=== PATIENT | female | born 1945 | race Caucasian/White ===

== ENCOUNTER 2022-08-06 08:48 | Day surgery (SDC) | payer MEDICARE, SELFPAY ==
--- NOTE | 2022-08-06 08:59 | FL_ITS ---
The [address] [address] Patient Name: TONY BELL MRN: [id number] date: 1945 Sex: F Assigned Patient Location: [place] Current Patient Location: [place] Accession/Order Number: [id number] Exam Date: 08/06/2022 09:40 Report Date: 08/06/2022 11:58 At the request of: MARCELA COTA Procedure: FL arthrogram shoulder RT EXAMINATION: FL arthrogram shoulder RT HISTORY: Right shoulder pain COMPARISON: No relevant comparison available. TECHNIQUE: An arthrogram was performed under fluoroscopic guidance using non-ionic contrast material in the usual sterile manner after obtaining informed consent. Standard level fluoroscopic mode of operation utilized. FINDINGS: JOINT: Right shoulder NEEDLE: 25 gauge, 3.5 spinal needle. MEDICATION: 2cc buffered 1% lidocaine for subcutaneous anesthesia 2cc Omnipaque-240 iodinated contrast to visualize the joint space 40 mg Depo-Medrol and one mL, 3 mL's of 0.5% bupivacaine, 3 cc of sterile saline injected into the joint space. TECHNIQUE: Anterior approach. A single stick was successful in gaining access to the joint space. CLINICAL: 4 out of 10 pain pre and post injection COMPLICATIONS: None. BONES: Normal. No erosion, osteophyte, fracture, or bony lesion. CARTILAGE: Normal. No visible erosion or interruption. CAPSULE: Normal. No visible capsular laxity or labrum tear. HARI-ARTICULAR: Normal. No visible hari-articular soft tissue abnormality. LOOSE BODIES: None. OTHER: Negative. IMPRESSION: Technically successful right shoulder arthrogram with no change in the patients pain Electronically authenticated by: DIPTI MCGILL Date: 08/06/2022 11:58
[2022-08-06] MEDS: BUPIVACAINE HCL 0.5% PF 50 MG/10 ML VIAL 2 ML INJ (10:00)
[2022-08-06] MEDS: TRIAMCINOLONE ACETONIDE 40 MG/ML VIAL INJ (10:00)
[2022-08-06] MEDS: LIDOCAINE HCL 10 ML, SODIUM BICARBONATE 1 MEQ INJ (10:00)
--- NOTE | 2022-08-06 11:51 | PC.NURSE ---
Pt states that her abdominal pain was caused by trying Naproxen recently and most NSAIDS cause her GI distress. Pain is resolving each day since stopping the medicine.
[2022-08-06 11:53] VITALS: BMI 15.2
--- NOTE | 2022-08-06 12:02 | PC.NURSE ---
1018 As I was walking patient out of department and down lab hallway, patient tripped and fell on left elbow and right knee. Pt remained conscious but was able to sit up 2 minutes after fall. Pt assisted to wheelchair and left elbow examined and noted to have skin tear approx size of an egg. Pt does have open break in skin with small amount of bleeding. Applied pressure for 2 minutes and then cleansed with NS. Applied Vaseline gauze dressing , 4x4 gauze, and coban to wrap. Right knee examined for open breaks in skin and no problems noted. Offered for pt to go to ER and be examined if she felt it was necessary but she declined. Pt feels as though she can drive home herself. 1025 Pt taken by w/c to vehicle. Gait steady and pt drove herself out of parking lot without incident.
== END 2022-08-06 10:25 | disposition home or self-care (01) ==
LOC: FL 08:50
PROVIDERS: Radiology Diagnostic Radiology; PCP Family Medicine; Visit Provider Family Medicine
DX: M25.511 Pain in right shoulder (principal)
CPT/HCPCS: 73040; 77002; Q9967

== ENCOUNTER 2023-07-31 11:04 | Outpatient (OUT) | payer MEDICARE, SELFPAY ==
[2023-07-31 11:39] LABS: Basophils Absolute Auto 0.1 10^3/uL (0.0-0.1); Basophils Percent Auto 1.9 % (0.2-2.0); Eosinophils Absolute Auto 0.1 10^3/uL (0.0-0.7); Eosinophils Percent Auto 1.5 % (0.9-7.0); Hematocrit 35.6 % (36.0-48.0); Hemoglobin 11.6 g/dL (12.0-16.0); Immature Granulocytes Abs Auto 0.01 10^3/uL (0.00-0.03); Immature Granulocytes Pct Auto 0.2 % (0.0-0.5); Lymphocytes Percent Auto 19.7 % (20.5-60.0); Mean Corpuscular HGB Conc 32.6 g/dL (29.9-35.2); Mean Corpuscular Hemoglobin 35.3 pg (26.7-34.0); Mean Corpuscular Volume 108.2 fL (81.0-99.0); Mean Platelet Volume 10.5 fL (9.5-13.5); Monocytes Absolute Auto 0.4 10^3/uL (0.3-0.8); Monocytes Percent Auto 7.2 % (1.7-12.0); Neutrophils Absolute Auto 3.7 10^3/uL (1.4-6.5); Neutrophils Percent Auto 69.5 % (43.0-75.0); Platelet Count 190 10^3/uL (150-450); Red Blood Count 3.29 10^6/uL (4.20-5.40); Red Cell Distribution Width 13.5 % (11.0-15.0); White Blood Count 5.3 10^3/uL (4.0-11.0)
[2023-07-31 12:47] LABS: Estimated Average Glucose 91 mg/dL; Glycohemoglobin A1C 4.8 % (4.5-6.2)
[2023-07-31 12:53] LABS: Alanine Aminotransferase 21 U/L (14-59); Albumin Globulin Ratio 0.8; Albumin Level 3.1 g/dL (3.4-5.0); Alkaline Phosphatase 66 U/L (46-116); Aspartate Amino Transferase 21 U/L (15-37); BUN Creatinine Ratio 13.8; Bilirubin Total 0.3 mg/dL (0.2-1.0); Calcium 8.7 mg/dL (8.5-10.1); Carbon Dioxide 18.4 mmol/L (21.0-32.0); Chloride 110 mmol/L (98-107); Cholesterol 214 mg/dL (<=200); Estimated GFR (African America 18 (>=60); Estimated GFR (Non-African Ame 15 (>=60); Free T3 14.15 pg/mL (2.18-3.98); Globulin 3.7 g/dL; Glucose 70 mg/dL (74-106); HDL Cholesterol 164 mg/dL (40-60); Potassium 3.4 mmol/L (3.5-5.1); Sodium 142 mmol/L (136-145); Thyroid Stimulating Hormone 0.245 uIU/mL (0.358-3.740); Total Protein 6.8 g/dL (6.4-8.2); Triglycerides 48 mg/dL (<=150); VLDL CHOLESTEROL 9.6 mg/dL
[2023-07-31 13:04] LABS: Chol HDL Ratio 1.3
== END 2023-07-31 11:05 | disposition home or self-care (01) ==
LOC: LAB 11:10
PROVIDERS: PCP Family Medicine; Visit Provider Family Medicine
DX: E78.5 Hyperlipidemia, unspecified (principal); Z79.899 Other long term (current) drug therapy; E11.9 Type 2 diabetes mellitus without complications; Z12.11 Encounter for screening for malignant neoplasm of colon; I10 Essential (primary) hypertension; E03.9 Hypothyroidism, unspecified
CPT/HCPCS: 36415; 80053; 80061; 83036; 84436; 84443; 84481; 85025

== ENCOUNTER 2023-08-03 11:29 | Outpatient (OUT) | payer MEDICARE, SELFPAY ==
[2023-08-03 12:37] LABS: Alanine Aminotransferase 21 U/L (14-59); Albumin Globulin Ratio 0.9; Albumin Level 3.2 g/dL (3.4-5.0); Alkaline Phosphatase 62 U/L (46-116); Anion Gap 16.6; Aspartate Amino Transferase 24 U/L (15-37); BUN Creatinine Ratio 15.2; Bilirubin Total 0.3 mg/dL (0.2-1.0); Calcium 8.6 mg/dL (8.5-10.1); Carbon Dioxide 18.8 mmol/L (21.0-32.0); Chloride 109 mmol/L (98-107); Estimated GFR (African America 19 (>=60); Estimated GFR (Non-African Ame 16 (>=60); Free T3 10.42 pg/mL (2.18-3.98); Globulin 3.5 g/dL; Glucose 100 mg/dL (74-106); Potassium 3.4 mmol/L (3.5-5.1); Sodium 141 mmol/L (136-145); Thyroid Stimulating Hormone 0.455 uIU/mL (0.358-3.740); Total Protein 6.7 g/dL (6.4-8.2)
[2023-08-04 14:11] LABS: Thyroglobulin Antibody 16.3 IU/mL (0.0-0.9); Thyroid Peroxidase (TPO) Ab >600 IU/mL (0-34)
== END 2023-08-03 11:30 | disposition home or self-care (01) ==
LOC: LAB 11:30
PROVIDERS: PCP Family Medicine; Visit Provider Family Medicine
DX: E03.9 Hypothyroidism, unspecified (principal); E87.6 Hypokalemia
CPT/HCPCS: 36415; 80053; 84436; 84443; 84481; 86376; 86800

== ENCOUNTER 2023-08-20 11:57 | Outpatient (OUT) | payer MEDICARE, SELFPAY ==
[2023-08-20 13:29] LABS: Free T4 1.44 ng/dL (0.76-1.46)
[2023-08-20 13:34] LABS: Thyroid Stimulating Hormone 1.038 uIU/mL (0.358-3.740)
== END 2023-08-20 11:58 | disposition home or self-care (01) ==
PROVIDERS: PCP Family Medicine; Visit Provider Family Medicine
DX: E05.00 Thyrotoxicosis with diffuse goiter without thyrotoxic crisis or storm (principal)
CPT/HCPCS: 36415; 84439; 84443

== ENCOUNTER 2023-12-04 11:20 | Outpatient (OUT) | payer MEDICARE, SELFPAY ==
--- OUTSIDE RECORDS SUMMARY | 2023-12-03 14:02 | XMS_ITS | CCD ---
Author Organization [facility] Care Team Providers Care Laborer Powerhouse Name Role Phone GHAZOUL, PRUDENCIO Unavailable Unavailable SELF, SELF Unavailable Unavailable GHAZOUL, PRUDENCIO Unavailable Unavailable SELF, SELF Unavailable Unavailable EfeemmaJordi turcios Unavailable IKEY ., DR MEDRANO Admitting Unavailable HOY ., DR MEDRANO Attending Unavailable HOY ., DR MEDRANO Consulting Unavailable HOY ., DR MEDRANO Primary Care Unavailable ZIEBER, DR FLY Correa Consulting Unavailable HOY ., DR MEDRANO Primary Care Unavailable HOY ., DR MEDRANO Attending Unavailable HOY ., DR MEDRANO Admitting Unavailable HOY ., DR MEDRANO Consulting Unavailable RANCHO CUCAMONGA, DR DIPTI Underwood Consulting Unavailable HOY ., DR MEDRANO Primary Care Unavailable HOY ., DR MEDRANO Attending Unavailable HOY ., DR MEDRANO Admitting Unavailable HOY ., DR MEDRANO Consulting Unavailable ZIEBER, DR FLY Correa Consulting Unavailable HOY ., DR MEDRANO Primary Care Unavailable HOY ., DR MEDRANO Attending Unavailable HOY ., DR MEDRANO Admgeovany Unavailable HOY ., DR MEDRANO Consulting Unavailable ZIEBER, DR FLY Correa Consulting Unavailable HOY ., DR MEDRANO Admgeovany Unavailable HOY ., DR MEDRANO Primary Care Unavailable HOY ., DR MEDRANO Attending Unavailable HOY ., DR MEDRANO Consulting Unavailable HOY ., DR MEDRANO Primary Care Unavailable HOY ., DR MEDRANO Attending Unavailable HOY ., DR MEDRANO Admitting Unavailable HOY ., DR MEDRANO Admitting Unavailable HOY ., DR MEDRANO Attending Unavailable HOY ., DR MEDRANO Consulting Unavailable HOY ., DR MEDRANO Primary Care Unavailable MICHAEL VERAS Unavailable RONIT MORALES Consulting Unavailable HOY ., DR MERDANO Admitting Unavailable HOY ., DR MEDRANO Attending Unavailable HOY ., DR MEDRANO Consulting Unavailable HOY ., DR MEDRANO Primary Care Unavailable DR FLY EARL Consulting Unavailable MD Marcela Rocha Primary Care Provider [phone] MD Moreno Canales Attending Provider Moreno Canales Unavailable MD Marcela Rocha Primary Care Provider [phone] MD Moreno Canales Attending Provider [phone] Marcela Rocha Primary Care Unavailable Moreno Canales Attending Unavailable Moreno Canales Admitting Unavailable Allergies Allergy Classification Reported Allergen(s) Allergy Type Date of Onset Reaction(s) Facility (3 sources) Penicillin V Drug Allergy Contently Other (1 source) Baclofen Drug Allergy 3 [facility] (1 source) Cefadroxil Drug Allergy 3 [facility] (1 source) Ibuprofen Drug Allergy 4 [facility] (1 source) Iothalamate Drug Allergy 3 [facility] (3 sources) Penicillins Drug allergy (disorder) 5 Vomiting [facility] (1 source) Sulfamethoxazole / Trimethoprim Drug Allergy 5 [facility] (3 sources) Meperidine; Translations: [meperidine] Drug Allergy 1 [facility] (3 sources) Sulfamethoxazole; Translations: [sulfamethoxazole] Drug Allergy 1 [facility] (3 sources) Trimethoprim; Translations: [trimethoprim] Drug Allergy 1 [facility] (1 source) Penicillin Drug Allergy [address] [facility] Rep[facility] (1 source) Penicillins Drug allergy (disorder) [address] [facility] Rep[facility] Medications Current Medications Medication Drug Class(es) Dates Sig (Normalized) Sig (Original) acetaminophen 325 mg / oxyCODONE hydrochloride 5 mg oral tablet (5 sources) Opioid Agonist Start: 11-16-2020 take 1 tablet by mouth twice daily Oxycodone-Acetami nophen Active 1 TAB PO Twice daily November 15, 2020 11:00pm oxyCODONE-Acetam inophen 5-325 MG Oral for 30 Active amLODIPine 5 mg oral tablet (5 sources) Dihydropyridine Calcium Channel Robby Start: 11-18-2020 take 5 mg by mouth twice daily Amlodipine Active 5 MG PO Twice daily 60 November 17, 2020 11:00pm carvedilol 25 mg oral tablet (5 sources) alpha-Adrenergic Robby, beta-Adrenergic Robby Start: 11-18-2020 take 25 mg by mouth twice daily at mealtime Carvedilol Active 25 MG PO Twice daily with meals 60 November 17, 2020 11:00pm Carvedilol 12.5 MG Oral for 30 Active dexamethasone 2 mg oral tablet (2 sources) Corticosteroid Start: 11-18-2020 Dexamethasone Active 2 MG PO As Directed 10 November 17, 2020 11:00pm Take 2 mg 3 times a day for 2 days then 2 mg 2 times a day for 2 days then stop diazePAM 2 mg oral tablet (2 sources) Benzodiazepine Start: 11-16-2020 take 2 mg by mouth at bedtime Diazepam Active 2 MG PO Bedtime November 15, 2020 11:00pm estrogens, conjugated (assisted) 0.9 mg oral tablet (5 sources) Estrogen Start: 11-16-2020 take 1 tablet by mouth once daily Conjugated Estrogens (Premarin) 0.9 mg Tablet Active 0.9 MG PO Daily November 15, 2020 11:00pm FLUoxetine 20 mg oral capsule (2 sources) Serotonin Reuptake Inhibitor Start: 11-17-2020 take 1 capsule by mouth once daily Fluoxetine (Prozac) 20 mg Capsule Active 20 MG PO Daily November 16, 2020 11:00pm levothyroxine sodium 0.05 mg oral tablet (7 sources) l-Thyroxine Start: 11-16-2020 take 50 ug by mouth once daily Levothyroxine Active 50 MCG PO Daily November 15, 2020 11:00pm Start: 11-16-2020 End: 11-16-2020 take 1 ug by mouth once daily Levothyroxine (Synthroid ) 25 mcg Tablet Discontinued MCG PO Daily November 15, 2020 11:00pm November 16, 2020 8:30am take 1 tablet by frank th once daily in the morning Levothyroxine Sodium 50 MCG 1 tablet in the morning on an empty stomach Orally Once a day Active meclizine hydrochloride 25 mg oral tablet (3 sources) Antiemetic Meclizine HCl 25 MG Oral for 5 Active Multi Complete (2 sources) Multi Complete Active potassium chloride 20 meq extended release oral tablet (5 sources) Start: 11-16-2020 take 20 mEq by mouth twice daily Potassium Chloride Active 20 MEQ PO Twice daily November 15, 2020 11:00pm Klor-Con M20 20 MEQ Oral for 90 Active zolpidem tartrate 10 mg oral tablet (5 sources) gamma-Aminobutyric Acid-ergic Agonist Start: 11-16-2020 take 10 mg by mouth at bedtime Zolpidem Active 10 MG PO Bedtime November 15, 2020 11:00pm Completed/Discontinued Medications Medication Drug Class(es) Dates Sig (Normalized) Sig (Original) triamcinolone acetonide 40 mg/ml injectable suspension (1 source) Corticosteroid Start: 11-18-2022 Kenalog-40 Nov, 40 mg Problems Active Problems Problem Classification Problem Date Documented Date Episodic/Chronic Abdominal hernia (1 source) Diaphragmatic hernia without obstruction or gangrene; Translations: [DIAPH HERNIA W/O OBST/GANGRENE] Onset: 07-04-2022 Episodic Abdominal pain (1 source) Right upper quadrant pain; Translations: [RIGHT UPPER QUADRANT PAIN] Onset: 07-04-2022 Episodic Acute cerebrovascular disease (8 sources) Nontraumatic intraparenchymal cerebral hemorrhage; Translations: [Nontraumatic intracerebral hemorrhage in hemisphere, subcortical] Onset: 12-26-2020 Resolved: 12-26-2020 Chronic Bacterial infection; unspecified site (1 source) Unspecified Escherichia coli [E. coli] as the cause of diseases classified elsewhere; Translations: [UNS E COLI CAUSE DX CLASS ELSEWHERE] Onset: 06-04-2022 Episodic Blindness and vision defects (2 sources) Eye / vision finding; Translations: [Unspecified visual disturbance] 11-17-2020 Episodic Calculus of urinary tract (1 source) Calculus of kidney; Translations: [CALCULUS OF KIDNEY] Onset: 07-04-2022 Episodic Deficiency and other anemia (1 source) Iron deficiency anemia, unspecified; Translations: [IRON DEFICIENCY ANEMIA UNSPECIFIED] Onset: 06-04-2022 Episodic Essential hypertension (2 sources) Hypertensive disorder; Translations: [Essential (primary) hypertension] 11-16-2020 Chronic Fluid and electrolyte disorders (2 sources) Dehydration; Translations: [Hypokalemia] Onset: 06-04-2022 Episodic Hypertension with complications and secondary hypertension (4 sources) Hypertensive urgency; Translations: [Hypertensive chronic kidney disease with stage 1 through stage 4 chronic kidney disease, or unspecified chronic kidney disease] Onset: 06-04-2022 11-16-2020 Chronic Menopausal disorders (1 source) Hormone replacement therapy; Translations: [HORMONE REPLACEMENT THERAPY] Onset: 06-04-2022 Episodic Mood disorders (1 source) Mood disorders; Translations: [DEPRESSION UNSPECIFIED] Onset: 06-04-2022 Nausea and vomiting (3 sources) Vomiting, unspecified; Translations: [VOMITING UNSPECIFIED] Onset: 05-14-2022 Episodic Noninfectious gastroenteritis (1 source) Noninfective gastroenteritis and colitis, unspecified; Translations: [NONINFECTIVE GE AND COLITIS UNS] Onset: 06-04-2022 Episodic Osteoarthritis (4 sources) Primary osteoarthritis, right shoulder; Translations: [PRIMARY OSTEOARTHRITIS RT SHOULDER] Onset: 02-27-2022 Chronic Other aftercare (1 source) Other senior living (current) drug therapy; Translations: [OTH GROUP HOME CURRENT DRUG THERAPY] Onset: 06-04-2022 Episodic Other lower respiratory disease (1 source) Shortness of breath; Translations: [SHORTNESS OF BREATH] Onset: 06-04-2022 Episodic Other nervous system disorders (4 sources) Anosmia; Translations: [ANOSMIA] Onset: 07-03-2022 Episodic Other non-traumatic joint disorders (6 sources) Pain in right shoulder; Translations: [PAIN IN RIGHT SHOULDER] Onset: 06-27-2022 Episodic Other nutritional; endocrine; and metabolic disorders (8 sources) Cerebral amyloid angiopathy; Translations: [Organ-limited amyloidosis] 11-16-2020 Chronic Residual codes; unclassified (3 sources) Procedure related finding; Translations: [Encounter for cosmetic surgery] Episodic Residual codes; unclassified (1 source) Altered mental status, unspecified; Translations: [ALTERED MENTAL STATUS UNSPECIFIED] Onset: 06-04-2022 Episodic Residual codes; unclassified (1 source) Acquired absence of both cervix and uterus; Translations: [ACQUIRED ABSENCE BOTH CERVIX AND UTERUS] Onset: 06-04-2022 Episodic Spondylosis; intervertebral disc disorders; other back problems (1 source) Dorsalgia, unspecified; Translations: [DORSALGIA UNSPECIFIED] Onset: 06-04-2022 Episodic Sprains and strains (1 source) Strain of other muscles, fascia and tendons at shoulder and upper arm level, right arm, initial encounter Episodic Thyroid disorders (1 source) Hypothyroidism, unspecified; Translations: [HYPOTHYROIDISM UNSPECIFIED] Onset: 06-04-2022 Chronic Unclassified (1 source) Botox Injection / 657() Onset: 12-09-2016 Unclassified (1 source) CHRN KIDNEY DISEASE STG 3 UNSP; Translations: [CHRN KIDNEY DISEASE STG 3 UNSP] Onset: 06-04-2022 Unclassified (1 source) CONTACT W/AND (SUSP) EXPOS COVID-19; Translations: [CONTACT W/AND (SUSP) EXPOS COVID-19] Onset: 06-04-2022 Unclassified (1 source) PERSONAL HISTORY OF COVID-19; Translations: [PERSONAL HISTORY OF COVID-19] Onset: 06-04-2022 Unclassified (1 source) Pain in right shoulder; Translations: [Pain in right shoulder] Onset: 11-05-2022 Urinary tract infections (1 source) Urinary tract infection, site not specified; Translations: [UTI SITE NOT SPECIFIED] Onset: 06-04-2022 Episodic Past or Other Problems Problem Classification Problem Date Documented Da te Episodic/Chronic Other connective tissue disease (4 sources) Impingement syndrome of right shoulder; Translations: [IMPINGEMENT SYNDROME RIGHT SHOULDER] Onset: 02-20-2022 Episodic Unclassified (1 source) Botox Injection; Translations: [Botox Injection] Onset: 12-09-2016 Results Test Name Value Interpretation Reference Range Facil ity US KIDNEYS BLADDERon 023 US KIDNEYS BLADDER EXAM: US KIDNEYS BLADDER HISTORY: Blood chemistry abnormal COMPARISON: CT abdomen and pelvis 07/03/2022.. TECHNIQUE: Real-time ultrasound imaging of the kidneys and bladder. Findings: The right and left kidneys measure 8.7 and 8.1 cm. There is good corticomedullary differentiation bilaterally. There are multiple 0.1 to 0.2 cm nonobstructing stones bilaterally. No renal collecting system dilatation. There are also bilateral renal cysts. The largest is within the upper pole the right kidney measuring 1.0 x 0.7 x 0.6 cm. No perinephric fluid collection. Unremarkable bladder with visualization of the bilateral ureteral jets. Prevoid volume of 836 mL with a postvoid residual of 21 mL. IMPRESSION: 1. Nonobstructing punctate renal stones. No collecting system dilatation. 2. Bilateral renal cysts. Electronically authenticated by: AMILCAR JACKSON Date: 2022-07-09 14:07 Normal [facility] CREATININEon 07-03-2022 Creatinine [Mass/Vol] 2.97 mg/dL Critically high 0.55-1.02 [facility] Comment on above: Performed By: #### C MP, LIPA #### [facility] [address] [address] [address] Andrey Dorman EGFR-AF CENTRAL AFRICAN 19 mL/min/1.73m2 Critically low >=60 [facility] Comment on above: Performed By: #### C MP, LIPA #### [facility] [address] [address] [address] Andrey Dorman EGFR-NON AF CENTRAL AFRICAN 15 mL/min/1.73m2 Critically low >=60 [facility] Comment on above: Performed By: #### C MP, LIPA #### [facility] [address] [address] [address] ABD/PELVIS WO CONon 07-03 CT ABD/PELVIS WO CON CT scan of the abdomen and pelvis without contrast HISTORY: Diaphragmatic hernia , nausea, vomiting, right upper quadrant pain FINDINGS: LUNG BASES: No visible pulmonary or pleural disease. LIVER: No enlargement, atrophy, abnormal density, or significant focal lesion. BILIARY: No dilatation or calcification. PANCREAS: No lesion, fluid collection, ductal dilatation, or atrophy. SPLEEN: No enlargement or focal lesion. ADRENALS: No mass or enlargement. 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 Punctate nephrolithiasis, nonobstructive. No hydronephrosis BOWEL/MESENTERY: No visible mass, obstruction, or bowel wall thickening. Minimal colonic diverticulosis AORTA/VASCULAR: No aneurysm or dissection. RETROPERITONEUM: No mass or adenopathy. LYMPH NODES: No adenopathy. URINARY BLADDER: No visible focal wall thickening, lesion, or calculus. PELVIC ORGANS: Hysterectomy ABDOMINAL WALL: No mass or hernia. BONES: No bony lesion or fracture. OTHER: Negative. IMPRESSION: No acute intraperitoneal abnormality No diaphragmatic hernia Electronically authenticated by: DIPTI MCGILL Date: 2022-07-03 14:20 Normal [facility] US SINGLE QUAD RT UPPERon US SINGLE QUAD RT UPPER EXAMINATION: US SINGLE QUAD RT UPPER HISTORY: Right upper quadrant pain , intermittent for 3 months COMPARISON: No relevant comparison available. TECHNIQUE: Transabdominal evaluation of the right upper quadrant. FINDINGS: LIVER: Normal size and echotexture. Color Doppler demonstrates patent hepatic veins. PORTAL VEIN: Duplex Doppler demonstrates normal hepatopetal flow pattern with flow velocity averaging 55 cm/s. GALLBLADDER: No visible gallstones, wall thickening, or pericholecystic free fluid. Negative sonographic Park's sign. BILIARY: No abnormal dilation or stones. Common bile duct diameter is within normal limits. PANCREASE: No visible mass, abnormal atrophy, or duct dilation. KIDNEY: Several tiny nonobstructing stones within the kidney. Size of kidney: 7.9 x 4.4 x 4.3 cm IMPRESSION: 1. Nonobstructing right nephrolithiasis. 2. Otherwise unremarkable right upper quadrant ultrasound. Electronically authenticated by: FLY EARL Date: 2022-06-02 11:40 Normal [facility] CULTURE URINEon 05-16-2022 CULTURE URINE Isolate 1 Escherichia coli >100,000 cfu/mL of ORGANISM 1 Escherichia coli ANTIBIOTIC M.I.C RX STATUS Ampicillin 4 S F Ampicillin/Sulbactam <=2 S F Piperacillin/Tazobactam <=4 S F Cefazolin <=4 S F Ceftazidime <=1 S F Ceftriaxone <=1 S F Ertapenem <=0.5 S F Imipenem <=0.25 S F Amikacin <=2 S F Gentamicin <=1 S F Tobramycin <=1 S F Ciprofloxacin >=4 R F Levofloxacin >=8 R F Nitrofurantoin <=16 S F Trimethoprim/Sulfametho xazole <=20 S F Normal [facility] Comment on above: Performed By: #### C JOE GAINES #### [facility] [address] [place] [address] Dr. Andrey Dorman BNPon 05-15-2022 Natriuretic peptide B (Bld) [Mass/Vol] 7068.0 pg/mL Critically high <=1,800.0 [facility] Comment on above: Performed By: #### C MP, LIPA #### [facility] [address] [place] [address] Dr. Andrey Dorman CBC AUTO DIFFon 05-15-2022 BASO # 0.1 103/ul Normal 0.0-0.1 [facility] Comment on above: Performed By: #### C MP, LIPA #### [facility] [address] [place] [address] Dr. Andrey Dorman Basophils/100 WBC (Bld) 0.8 % Normal 0.2-2.0 [facility] Comment on above: Performed By: #### C MP, LIPA #### [facility] [address] [place] [address] Dr. Andrey Dorman EO # 0.2 103/ul Normal 0.0-0.7 [facility] Comment on above: Performed By: #### C MP, LIPA #### [facility] [address] [place] [address] Dr. Andrey Dorman Eosinophils/100 WBC (Bld) 3.1 % Normal 0.9-7.0 [facility] Comment on above: Performed By: #### C MP, LIPA #### [facility] [address] [place] [address] Dr. Andrey Dorman Erythrocyte distribution width (RBC) [Ratio] 13.5 % Normal 11.0-15.0 [facility] Comment on above: Performed By: #### C MP, LIPA #### [facility] [address] [place] [address] Dr. Andrey Dorman Hematocrit (Bld) [Volume fraction] 30.1 % Critically low 36.0-48.0 [facility] Comment on above: Performed By: #### C MP, LIPA #### [facility] [address] [place] [address] Dr. Andrey Dorman Hemoglobin (Bld) [Mass/Vol] 11.2 g/dL Critically low 12.0-16.0 [facility] Comment on above: Performed By: #### C MP, LIPA #### [facility] [address] [address] [address] Andrey Dorman IG # 0.02 10e3/ul Normal 0.00-0.03 [facility] Comment on above: Performed By: #### C MP, LIPA #### [facility] [address] [address] [address] Andrey Dorman IG % 0.3 % Normal 0.0-0.5 [facility] Comment on above: Performed By: #### C MP, LIPA #### [facility] [address] [address] [address] Andrey Dorman LYMPH # 1.4 103/ul Normal 1.2-3.8 [facility] Comment on above: Performed By: #### C MP, LIPA #### [facility] [address] [address] [address] Andrey Dorman Lymphocytes/100 WBC (Bld) 19.6 % Critically low 20.5-60.0 [facility] Comment on above: Performed By: #### C MP, LIPA #### [facility] [address] [address] [address] Andrey Dorman MANUAL DIFF REQ NO Normal [facility] Comment on above: Performed By: #### C MP, LIPA #### [facility] [address] [address] [address] Andrey Dorman MCH (RBC) [Entitic mass] 41.0 pg Critically high 26.7-34.0 [facility] Comment on above: Performed By: #### C MP, LIPA #### [facility] [address] [address] [address] Andrey Dorman MCHC (RBC) [Mass/Vol] 37.2 g/dL Critically high 29.9-35.2 [facility] Comment on above: Performed By: #### C MP, LIPA #### [facility] [address] [address] [address] Andrey Dorman MCV (RBC) [Entitic vol] 110.3 fL Critically high 81.0-99.0 [facility] Comment on above: Performed By: #### C MP, LIPA #### [facility] [address] [address] [address] Andrey Dorman MONO # 0.7 103/ul Normal 0.3-0.8 [facility] Comment on above: Performed By: #### C MP, LIPA #### [facility] [address] [place] [address] Dr. Andrey Dorman Monocytes/100 WBC (Bld) 10.1 % Normal 1.7-12.0 [facility] Comment on above: Performed By: #### C MP, LIPA #### [facility] [address] [place] [address] Dr. Andrey Dorman NEUT # 4.7 103/ul Normal 1.4-6.5 [facility] Comment on above: Performed By: #### C MP, LIPA #### [facility] [address] [place] [address] Dr. Andrey Dorman Neutrophils/100 WBC (Bld) 66.1 % Normal 43.0-75.0 [facility] Comment on above: Performed By: #### C MP, LIPA #### [facility] [address] [place] [address] Dr. Andrey Dorman Platelet mean volume (Bld) [Entitic vol] 9.9 fL Normal 9.5-13.5 [facility] Comment on above: Performed By: #### C MP, LIPA #### [facility] [address] [place] [address] Dr. Andrey Dorman PLT 161 103/ul Normal 150-450 [facility] Comment on above: Performed By: #### C MP, LIPA #### [facility] [address] [address] [address] Andrey Dorman RBC 2.73 106/ul Critically low 4.20-5.40 [facility] Comment on above: Performed By: #### C MP, LIPA #### [facility] [address] [place] [address] Dr. Andrey Dorman WBC 7.2 103/ul Normal 4.0-11.0 [facility] Comment on above: Performed By: #### C JOE GAINES #### [facility] [address] [address] [address] Andrey Dorman ECHOCARDIO M/2D COMPLETEon 0 05-15-2022 ECHOCARDIO M/2D COMPLETE Patient: TONY BELL Exam Date: 05/15/2022 : 1945 Gender:F Ordering : DR MARCELA ROCHA . Admission #: [id number] Family : Order #: [id number] CLICK HERE TO VIEW EXAM ECHOCARDIOGRAM REPORT PROCEDURE: CARDIO PULMONARY ECHOCARDIO M/2D COMP INDICATIONS: Elevated traponin and BNP COMPARISON: None. DESCRIPTION: COMPLETE ECHOCARDIOGRAM Real-time transthoracic echocardiography with 2D, M-mode, spectral and color flow Doppler performed. QUALITY: Technical quality was good. LEFT VENTRICLE: Normal chamber size. Normal left ventricular wall thickness. Hyperdynamic left ventricular systolic function. Elevated left ventricular outflow tract velocities related to hyperdynamic contractility [peak velocity in the LVOT 1.9 m/s]. LV EF: Visual estimation of left ventricular ejection fraction is 70-75%. DIASTOLIC: Grade I diastolic dysfunction. ATRIAL SEPTUM: LEFT ATRIUM: Moderate dilatation. RIGHT ATRIUM: Normal chamber size. RIGHT VENTRICLE: Normal chamber size. Normal right ventricular systolic function. TRICUSPID VALVE: Normal mobility and thickness. No stenosis with mild regurgitation. Moderate pulmonary hypertension. RVSP 45 mmHg MITRAL VALVE: Normal mobility and thickness. No mitral valve prolapse. No evidence of mitral valve stenosis. There is no mitral annular calcification. Mild mitral regurgitation. AORTIC VALVE: Normal trileaflet appearance. No visible sclerosis. Normal leaflet mobility. No evidence of aortic valve stenosis. Trivial aortic regurgitation. AORTIC ROOT: Normal diameter and appearance. PULMONIC VALVE: Normal thickness and mobility. No stenosis. Trivial regurgitation. PERICARDIUM: No evidence of pericardial effusion. IVC: Collapses with inspirations. Normal size. PLEURA: CONCLUSION: 1. Normal left ventricular size and wall thickness. Hyperdynamic contractility of the ventricle. LVEF is 70 to 75%. 2. Normal right ventricular size and systolic function. 3. Mild diastolic dysfunction. 4. Mild mitral and tricuspid regurgitation. 5. Moderately elevated right-sided pressures. 6. No pericardial effusion. Adult Echocardiography Procedure Report Left Ventricle LVEDD (3.7 - 5.6 cm): 3.58 cm LVESD (2.2 - 4.0 cm): 2.37 cm LVIVS thickness (0.6 - 1.2 cm): 0.97 cm LVPW thickness (0.5 - 1.0 cm): 0.73 cm e': 0.09 m/s E - e': 9.59 LVOT Max Gradient: 15.10 mm[Hg] Peak Velocity (LVOT): 1.94 m/s Mean Velocity (LVOT): 1.30 m/s LVOT Diameter 1.79 cm Left Ventricular Ejection Fraction: 70-75 % Left Atrium LA Volume Index (2D A2C): 55.03 ml, 55.03 ml Left Atrium Systolic Dimension: 3.28 cm Mitral Valve MV E to A Ratio: 0.73 Mitral Valve A-Wave Peak Velocity: 1.17 m/s Mitral Valve E-Wave Peak Velocity: 0.86 m/s Right Ventricle RV Internal Diastolic Dimension: 2.61 cm Aorta AO Root Diam: 2.92 cm Ascending Ao Diam: 2.69 cm Aortic Valve AoV Area (Peak [place]): 2.48 cm2, 2.54 cm2 AoV Area (VTI): 2.33 cm2, 2.37 cm2 Peak Velocity(Antegrade Flow): 1.93 m/s, 2.02 m/s Peak Gradient(Antegrade Flow): 14.89 mm[Hg], 16.29 mm[Hg] Mean Velocity(Antegrade Flow): 1.42 m/s, 1.49 m/s Mean Gradient(Antegrade Flow): 9.12 mm[Hg], 10.04 mm[Hg] Velocity Time Integral: 44.85 cm, 46.46 cm Tricuspid Valve Peak Velocity (Regurgitant Flow): 3.06 m/s, 2.66 m/s, 3.24 m/s Peak Velocity: 0.62 m/s Pulmonic Valve Peak Velocity: 0.97 m/s, 1.06 m/s Peak Gradient: 3.75 mm[Hg], 4.47 mm[Hg] Right Atrium Right Atrium Systolic Pressure: 19.11 ml, 19.11 ml Dictated by: Kris Torres M.D. on 05/15/2022 at 17:41 Approved by: Kris Torres M.D. on 05/15/2022 at 17:46 Normal [facility] PROF CHEM 8 (BAS METB)on Anion gap [Moles/Vol] 14.3 mmol/L Normal [facility] Comment on above: Performed By: #### B OCCUPATIONAL HYGIENIST, BMP #### [facility] [address] [place] [address] Dr. Andrey Dorman Calcium [Mass/Vol] 7.9 mg/dL Critically low 8.5-10.1 [facility] Comment on above: Performed By: #### B OCCUPATIONAL HYGIENIST, BMP #### [facility] [address] [address] [address] Andrey Dorman Chloride [Moles/Vol] 110 mmol/L Critically high 98-107 [facility] Comment on above: Performed By: #### B OCCUPATIONAL HYGIENIST, BMP #### [facility] [address] [place] [address] Dr. Andrey Dorman CO2 [Moles/Vol] 19.2 mmol/L Critically low 21.0-32.0 [facility] Comment on above: Performed By: #### B OCCUPATIONAL HYGIENIST, BMP #### [facility] [address] [place] [address] Dr. Andrey Dorman Creatinine [Mass/Vol] 2.17 mg/dL Critically high 0.55-1.02 [facility] Comment on above: Performed By: #### B OCCUPATIONAL HYGIENIST, BMP #### [facility] [address] [place] [address] Dr. Andrey Dorman EGFR-AF CENTRAL AFRICAN 27 mL/min/1.73m2 Critically low >=60 [facility] Comment on above: Performed By: #### B OCCUPATIONAL HYGIENIST, BMP #### [facility] [address] [place] [address] Dr. Andrey Dorman EGFR-NON AF CENTRAL AFRICAN 22 mL/min/1.73m2 Critically low >=60 [facility] Comment on above: Performed By: #### B OCCUPATIONAL HYGIENIST, BMP #### [facility] [address] [place] [address] Dr. Andrey Dorman Glucose [Mass/Vol] 82 mg/dL Normal 74-106 [facility] Comment on above: Performed By: #### B OCCUPATIONAL HYGIENIST, BMP #### [facility] [address] [place] [address] Dr. Andrey Dorman Potassium [Moles/Vol] 3.5 mmol/L Normal 3.5-5.1 [facility] Comment on above: Performed By: #### B OCCUPATIONAL HYGIENIST, BMP #### [facility] [address] [place] [address] Dr. Andrey Dorman Sodium [Moles/Vol] 140 mmol/L Normal 136-145 [facility] Comment on above: Performed By: #### B OCCUPATIONAL HYGIENIST, BMP #### [facility] [address] [place] [address] Dr. Andrey Dorman Urea nitrogen [Mass/Vol] 26.0 mg/dL Critically high 7.0-18.0 [facility] Comment on above: Performed By: #### B OCCUPATIONAL HYGIENIST, BMP #### [facility] [address] [place] [address] Dr. Andrey Dorman Urea nitrogen/Creatinin e [Mass ratio] 12.0 mg/mg Normal [facility] Comment on above: Performed By: #### B OCCUPATIONAL HYGIENIST, BMP #### [facility] [address] [place] [address] Dr. Andrey Dorman AMYLASEon 05-14-2022 Amylase [Catalytic activity/Vol] 58 U/L Normal 25-115 [facility] Comment on above: Performed By: #### C MADM, LIPA, WILLIAMS, CMP #### [facility] [address] [place] [address] Dr. Andrey Dorman CARDIAC WENDY 3-6on 3 CK [Catalytic activity/Vol] 145 U/L Normal 26-192 [facility] Comment on above: Performed By: #### C MP, LIPA #### [facility] [address] [place] [address] Dr. Andrey Dorman CK.MB [Mass/Vol] 4.89 ng/mL Critically high <=3.60 [facility] Comment on above: Performed By: #### C MP, LIPA #### [facility] [address] [place] [address] Dr. Andrey Dorman HSTROP 27.2 pg/mL Normal 4.0-51.3 [facility] Comment on above: Result Comment: CUT- OFF POINTS HAVE BEEN ESTABLISHED BASED ON THE FOURTH UNIVERSAL DEFINITIONS OF MYOCARDIAL INFARCTION. THE UPPER REFERENCE LIMIT (URL) OF TROPONIN, DEFINED THE 99TH PERCENTILE OF cTnI DISTRIBUTION IN A REFERENCE POPULATION, HAS BEEN CONFIRMED THE DECISION THRESHOLD FOR LA DIAGNOSIS. Performed By: #### C MP, LIPA #### [facility] [address] [place] [address] Dr. Andrey Dorman CK [Catalytic activity/Vol] 159 U/L Normal 26-192 [facility] Comment on above: Performed By: #### C MREP #### [facility] [address] [place] [address] Dr. Andrey Dorman CK.MB [Mass/Vol] 5.18 ng/mL Critically high <=3.60 [facility] Comment on above: Performed By: #### C MREP #### [facility] [address] [place] [address] Dr. Andrey Dorman HSTROP 17.5 pg/mL Normal 4.0-51.3 [facility] Comment on above: Result Comment: CUT- OFF POINTS HAVE BEEN ESTABLISHED BASED ON THE FOURTH UNIVERSAL DEFINITIONS OF MYOCARDIAL INFARCTION. THE UPPER REFERENCE LIMIT (URL) OF TROPONIN, DEFINED THE 99TH PERCENTILE OF cTnI DISTRIBUTION IN A REFERENCE POPULATION, HAS BEEN CONFIRMED THE DECISION THRESHOLD FOR LA DIAGNOSIS. Performed By: #### C MREP #### [facility] [address] [place] [address] Dr. Andrey Dorman CARDIAC WENDY ADMITon 023 CK [Catalytic activity/Vol] 162 U/L Normal 26-192 [facility] Comment on above: Performed By: #### C MADM, LIPA, WILLIAMS, CMP #### [facility] [address] [place] [address] Dr. Andrey Dorman CK.MB [Mass/Vol] 5.11 ng/mL Critically high <=3.60 [facility] Comment on above: Performed By: #### C MADM, LIPA, WILLIAMS, CMP #### [facility] [address] [place] [address] Dr. Andrey Dorman HSTROP 13.8 pg/mL Normal 4.0-51.3 [facility] Comment on above: Result Comment: CUT- OFF POINTS HAVE BEEN ESTABLISHED BASED ON THE FOURTH UNIVERSAL DEFINITIONS OF MYOCARDIAL INFARCTION. THE UPPER REFERENCE LIMIT (URL) OF TROPONIN, DEFINED THE 99TH PERCENTILE OF cTnI DISTRIBUTION IN A REFERENCE POPULATION, HAS BEEN CONFIRMED THE DECISION THRESHOLD FOR LA DIAGNOSIS. Performed By: #### C MADM, LIPA, WILLIAMS, CMP #### [facility] [address] [address] [address] Andrey Dorman RAMY 195 ng/mL Critically high 9-82 [facility] Comment on above: Performed By: #### C PAIGEM, PERRIA, WILLIAMS, CMP #### [facility] [address] [address] [address] Andrey Dorman CBC AUTO DIFFon 05-14-2022 BASO # 0.1 103/ul Normal 0.0-0.1 [facility] Comment on above: Performed By: #### C MP, LIPA #### [facility] [address] [address] [address] Andrey Dorman Basophils/100 WBC (Bld) 1.0 % Normal 0.2-2.0 [facility] Comment on above: Performed By: #### C MP, LIPA #### [facility] [address] [place] [address] Dr. Andrey Dorman EO # 0.1 103/ul Normal 0.0-0.7 [facility] Comment on above: Performed By: #### C MP, LIPA #### [facility] [address] [place] [address] Dr. Andrey Dorman Eosinophils/100 WBC (Bld) 0.8 % Critically low 0.9-7.0 [facility] Comment on above: Performed By: #### C MP, LIPA #### [facility] [address] [place] [address] Dr. Andrey Dorman Erythrocyte distribution width (RBC) [Ratio] 12.6 % Normal 11.0-15.0 [facility] Comment on above: Performed By: #### C MP, LIPA #### [facility] [address] [address] [address] Andrey Dorman Hematocrit (Bld) [Volume fraction] 34.1 % Critically low 36.0-48.0 [facility] Comment on above: Performed By: #### C MP, LIPA #### [facility] [address] [place] [address] Dr. Andrey Dorman Hemoglobin (Bld) [Mass/Vol] 11.7 g/dL Critically low 12.0-16.0 [facility] Comment on above: Performed By: #### C MP, LIPA #### [facility] [address] [place] [address] Dr. Andrey Dorman IG # 0.03 10e3/ul Normal 0.00-0.03 [facility] Comment on above: Performed By: #### C MP, LIPA #### [facility] [address] [place] [address] Dr. Andrey Dorman IG % 0.4 % Normal 0.0-0.5 [facility] Comment on above: Performed By: #### C MP, LIPA #### [facility] [address] [place] [address] Dr. Andrey Dorman LYMPH # 1.1 103/ul Critically low 1.2-3.8 [facility] Comment on above: Performed By: #### C MP, LIPA #### [facility] [address] [address] [address] Andrey Dorman Lymphocytes/100 WBC (Bld) 13.8 % Critically low 20.5-60.0 [facility] Comment on above: Performed By: #### C MP, LIPA #### [facility] [address] [address] [address] Andrey Dorman MANUAL DIFF REQ NO Normal [facility] Comment on above: Performed By: #### C MP, LIPA #### [facility] [address] [place] [address] Dr. Andrey Doramn MCH (RBC) [Entitic mass] 35.8 pg Critically high 26.7-34.0 [facility] Comment on above: Performed By: #### C MP, LIPA #### [facility] [address] [place] [address] Dr. Andrey Dorman MCHC (RBC) [Mass/Vol] 34.3 g/dL Normal 29.9-35.2 [facility] Comment on above: Performed By: #### C MP, LIPA #### [facility] [address] [place] [address] Dr. Andrey Dorman MCV (RBC) [Entitic vol] 104.3 fL Critically high 81.0-99.0 [facility] Comment on above: Performed By: #### C MP, LIPA #### [facility] [address] [place] [address] Dr. Andrey Dorman MONO # 0.6 103/ul Normal 0.3-0.8 [facility] Comment on above: Performed By: #### C MP, LIPA #### [facility] [address] [place] [address] Dr. Andrey Dorman Monocytes/100 WBC (Bld) 7.6 % Normal 1.7-12.0 [facility] Comment on above: Performed By: #### C MP, LIPA #### [facility] [address] [place] [address] Dr. Andrey Dorman NEUT # 6.3 103/ul Normal 1.4-6.5 [facility] Comment on above: Performed By: #### C MP, LIPA #### [facility] [address] [place] [address] Dr. Andrey Dorman Neutrophils/100 WBC (Bld) 76.4 % Critically high 43.0-75.0 [facility] Comment on above: Performed By: #### C MP, LIPA #### [facility] [address] [place] [address] Dr. Andrey Dorman Platelet mean volume (Bld) [Entitic vol] 10.2 fL Normal 9.5-13.5 [facility] Comment on above: Performed By: #### C MP, LIPA #### [facility] [address] [place] [address] Dr. Andrey Dorman PLT 189 103/ul Normal 150-450 [facility] Comment on above: Performed By: #### C LIANA, LIPA #### [facility] [address] [place] [address] Dr. Andrey Dorman RBC 3.27 106/ul Critically low 4.20-5.40 [facility] Comment on above: Performed By: #### C LIANA, LIPA #### [facility] [address] [place] [address] Dr. Andrey Dorman WBC 8.3 103/ul Normal 4.0-11.0 [facility] Comment on above: Performed By: #### C LIANA LIPA #### [facility] [address] [place] [address] Dr. Andrey Dorman BASO # 0.1 103/ul Normal 0.0-0.1 [facility] Comment on above: Performed By: #### K #### [facility] [address] [place] [address] Dr. Andrey Dorman Basophils/100 WBC (Bld) 1.3 % Normal 0.2-2.0 [facility] Comment on above: Performed By: #### K #### [facility] [address] [place] [address] Dr. Andrey Dorman EO # 0.1 103/ul Normal 0.0-0.7 [facility] Comment on above: Performed By: #### K #### [facility] [address] [place] [address] Dr. Andrey Dorman Eosinophils/100 WBC (Bld) 1.0 % Normal 0.9-7.0 [facility] Comment on above: Performed By: #### K #### [facility] [address] [place] [address] Dr. Andrey Dorman Erythrocyte distribution width (RBC) [Ratio] 12.4 % Normal 11.0-15.0 [facility] Comment on above: Performed By: #### K #### [facility] [address] [place] [address] Dr. Andrey Dorman Hematocrit (Bld) [Volume fraction] 33.7 % Critically low 36.0-48.0 [facility] Comment on above: Performed By: #### K #### [facility] [address] [place] [address] Dr. Andrey Dorman Hemoglobin (Bld) [Mass/Vol] 11.9 g/dL Critically low 12.0-16.0 [facility] Comment on above: Performed By: #### K #### [facility] [address] [place] [address] Dr. Andrey Dorman IG # 0.02 10e3/ul Normal 0.00-0.03 [facility] Comment on above: Performed By: #### K #### [facility] [address] [place] [address] Dr. Andrey Dorman IG % 0.2 % Normal 0.0-0.5 [facility] Comment on above: Performed By: #### K #### [facility] [address] [place] [address] Dr. Andrey Dorman LYMPH # 1.0 103/ul Critically low 1.2-3.8 [facility] Comment on above: Performed By: #### K #### [facility] [address] [place] [address] Dr. Andrey Dorman Lymphocytes/100 WBC (Bld) 11.7 % Critically low 20.5-60.0 [facility] Comment on above: Performed By: #### K #### [facility] [address] [place] [address] Dr. Andrey Dorman MANUAL DIFF REQ NO Normal [facility] Comment on above: Performed By: #### K #### [facility] [address] [place] [address] Dr. Andrey Dorman MCH (RBC) [Entitic mass] 37.3 pg Critically high 26.7-34.0 [facility] Comment on above: Performed By: #### K #### [facility] [address] [place] [address] Dr. Andrey Dorman MCHC (RBC) [Mass/Vol] 35.3 g/dL Critically high 29.9-35.2 [facility] Comment on above: Performed By: #### K #### [facility] [address] [address] [address] Andrey Dorman MCV (RBC) [Entitic vol] 105.6 fL Critically high 81.0-99.0 [facility] Comment on above: Performed By: #### K #### [facility] [address] [address] [address] Andrey Dorman MONO # 0.4 103/ul Normal 0.3-0.8 [facility] Comment on above: Performed By: #### K #### [facility] [address] [address] [address] Andrey Dorman Monocytes/100 WBC (Bld) 4.9 % Normal 1.7-12.0 [facility] Comment on above: Performed By: #### K #### [facility] [address] [address] [address] Andrey Dorman NEUT # 6.7 103/ul Critically high 1.4-6.5 [facility] Comment on above: Performed By: #### K #### [facility] [address] [address] [address] Andrey Dorman Neutrophils/100 WBC (Bld) 80.9 % Critically high 43.0-75.0 [facility] Comment on above: Performed By: #### K #### [facility] [address] [address] [address] Andrey Dorman Platelet mean volume (Bld) [Entitic vol] 10.2 fL Normal 9.5-13.5 [facility] Comment on above: Performed By: #### K #### [facility] [address] [address] [address] Andrey Dorman PLT 173 103/ul Normal 150-450 [facility] Comment on above: Performed By: #### K #### [facility] [address] [address] [address] Andrey Dorman RBC 3.19 106/ul Critically low 4.20-5.40 [facility] Comment on above: Performed By: #### K #### [facility] [address] [place], [place] [address] Dr. Andrey Dorman WBC 8.3 103/ul Normal 4.0-11.0 [facility] Comment on above: Performed By: #### K #### [facility] [address] [place], [place] [address] CHEST WO CONon 05-14-2022 CT CHEST WO CON CT CHEST WO CON: 05/14/2022 2:02 AM EDT CLINICAL HISTORY: 76 years old Female with SHORTNESS OF BREATH. TECHNIQUE: CT CHEST WO CON was performed with axial CT images obtained as well as sagittal and coronal reformations without the administration of intravenous contrast. Dose reduction techniques were achieved by using automated exposure control and/or adjustment of mA and/or kV according to patient size and/or use of iterative reconstruction technique. COMPARISON: Chest x-ray performed on this date and CT thorax 02/02/2021. FINDINGS: Evaluation of the vasculature and hilar lymphadenopathy is degraded secondary to lack of intravenous contrast. The heart appears normal with no evidence of pericardial effusion. The aorta is normal in course and caliber without aneurysm. There are no enlarged mediastinal lymph nodes. The tracheobronchial tree is patent. The lungs are clear. Inflation. There is no consolidation, mass or pleural effusion. There is no pneumothorax. Small upper abdominal ascites is present with trace perihepatic and perisplenic fluid present. Left renal cortical calcifications are present. Splenic calcifications are present. Osseous structures:The osseous structures are grossly unremarkable. IMPRESSION: 1. No acute cardiopulmonary process identified. The lungs are hyperinflated and clear. 2. Trace upper abdominal ascites is present. 3. Left renal cortical calcific densities are present. Electronically authenticated by: RONIT MORALES Date: 2022-05-14 02:48 Normal [facility] Covid-19 PCR (CVDTB)on SARS-CoV-2 (COVID-19) RNA DAYANNA+probe Ql (Unsp spec) Not detected Normal NOT DETECTED [facility] Comment on above: Result Comment: When diagnostic testing is negative, the possibility of a false negative should be considered in the context of a patient's recent exposures and the presence of clinical signs and symptoms consistent with SARS-CoV-2. This test is not yet approved or cleared by the [place] FDA. When there are no FDA-approved or cleared tests available, and other criteria are met, FDA can make tests available under an emergency access mechanism called an Emergency Use Authorization (EUA). The EUA for this test is supported by the [place] of Health and Human Service's declaration that circumstances exist to justify the emergency use of in vitro diagnostics for the detection and/or diagnosis of the virus that causes COVID-19. This EUA will remain in effect for the duration of the COVID-19 declaration justifying emergency of IVDs, unless it is terminated or revoked by the FDA (after which the test may no longer be used). Performed By: #### C MP, LIPA #### [facility] [address] [place] [address] Dr. Andrey Dorman D-DIMERon 05-14-2022 D-DIMER 2.00 mg/L FEU Critically high <=0.59 [facility] Comment on above: Performed By: #### D DIM #### [facility] [address] [place] [address] Dr. Andrey Dorman D-DIMER COMMENTS SEE BELOW Normal [facility] Comment on above: Result Comment: Incr eases in D-Dimer concentration observed with thromboembolic events can be variable due to localization, size, and age of the thrombus. Therefore, a thromboembolic event cannot be diagnosed with certainty on the basis of the reference range. D-Dimers may also be elevated for a variety of disorders including: advanced age, , coronary disease, cancer, liver disease, infection, inflammation, hematoma, DIC, trauma, post-surgery, diabetes, thrombolytic or anticoagulant therapy, stress, and generalized hospitalization. Performed By: #### D DIM #### [facility] [address] [place] [address] Dr. Andrey Dorman ER URINE PROFILEon 3 Bilirubin Ql (U) Negative Normal NEGATIVE [facility] Comment on above: Performed By: #### D DIM #### [facility] [address] [place] [address] Dr. Andrey Dorman Clarity (U) CLEAR Normal CLEAR [facility] Comment on above: Performed By: #### D DIM #### [facility] [address] [place] [address] Dr. Andrey Dorman Color (U) LT. YELLOW Normal YELLOW [facility] Comment on above: Performed By: #### D DIM #### [facility] [address] [place] [address] Dr. Andrey PIZARRO A micrscopic examination will be performed if indicated. Normal [facility] Comment on above: Performed By: #### D DIM #### [facility] [address] [place] [address] Dr. Andrey Dorman Glucose Ql (U) Negative Normal NEGATIVE [facility] Comment on above: Performed By: #### D DIM #### [facility] [address] [place] [address] Dr. Andrey Dorman Hemoglobin Ql (U) Negative Normal NEGATIVE [facility] Comment on above: Performed By: #### D DIM #### [facility] [address] [place] [address] Dr. Andrey Dorman Ketones Ql (U) 15 mg/dl Abnormal NEGATIVE [facility] Comment on above: Performed By: #### D DIM #### [facility] [address] [place] [address] Dr. Andrey Dorman LEUKOCYTES SMALL Abnormal NEGATIVE [facility] Comment on above: Performed By: #### D DIM #### [facility] [address] [place] [address] Dr. Andrey Dorman Nitrite Ql (U) Negative Normal NEGATIVE [facility] Comment on above: Performed By: #### D DIM #### [facility] [address] [place] [address] Dr. Andrey Dorman pH (U) 6.0 [pH] Normal 5-9 [facility] Comment on above: Performed By: #### D DIM #### [facility] [address] [place] [address] Dr. Andrey Dorman Protein (U) [Mass/Vol] 30 mg/dL Abnormal NEGATIVE/ TRACE [facility] Comment on above: Performed By: #### D DIM #### [facility] [address] [place] [address] Dr. Andrey Dorman SPEC GRAVITY 1.010 Normal 1.005-<=1.025 The [facility] Comment on above: Performed By: #### D DIM #### [facility] [address] [place] [address] Dr. Andrey Dorman UR MICRO IND INDICATED Normal [facility] Comment on above: Performed By: #### D DIM #### [facility] [address] [place] [address] Dr. Andrey Dorman Urobilinogen Qn (U) 0.2 {Naresh'U}/dL Normal 0.2 - 1.0 [facility] Comment on above: Performed By: #### D DIM #### [facility] [address] [place] [address] Dr. Andrey Dorman LACTATE/LACTIC ACIDon 2022 Lactate [Moles/Vol] 0.9 mmol/L Normal 0.4-2.0 [facility] Comment on above: Performed By: #### C MP, LIPA #### [facility] [address] [place] [address] Dr. Andrey Dorman LIPASEon 05-14-2022 Lipase [Catalytic activity/Vol] 127.0 U/L Normal 73.0-393.0 [facility] Comment on above: Performed By: #### C MP, LIPA #### [facility] [address] [place] [address] Dr. Andrey Dorman Lipase [Catalytic activity/Vol] 202.0 U/L Normal 73.0-393.0 [facility] Comment on above: Performed By: #### C MADM, LIPA, WILLIAMS, CMP #### [facility] [address] [place] [address] Dr. Andrey Dorman POTASSIUMon 05-14-2022 Potassium [Moles/Vol] 3.8 mmol/L Normal 3.5-5.1 [facility] Comment on above: Performed By: #### K #### [facility] [address] [place] [address] Dr. Andrey Dorman PROF 14(COMP METB)on 023 Albumin [Mass/Vol] 3.1 g/dL Critically low 3.4-5.0 Th [facility] Comment on above: Performed By: #### C MP, LIPA #### [facility] [address] [place] [address] Dr. Andrey Dorman Albumin/Globulin [Mass ratio] 0.8 {ratio} Normal [facility] Comment on above: Performed By: #### C MP, LIPA #### [facility] [address] [place] [address] Dr. Andrey Dorman ALP [Catalytic activity/Vol] 51 U/L Normal 46-116 [facility] Comment on above: Performed By: #### C MP, LIPA #### [facility] [address] [place] [address] Dr. Andrey Dorman ALT [Catalytic activity/Vol] 18 U/L Normal 14-59 [facility] Comment on above: Performed By: #### C MP, LIPA #### [facility] [address] [place] [address] Dr. Andrey Dorman Anion gap [Moles/Vol] 16.6 mmol/L Normal [facility] Comment on above: Performed By: #### C MP, LIPA #### [facility] [address] [place] [address] Dr. Andrey Dorman AST [Catalytic activity/Vol] 22 U/L Normal 15-37 [facility] Comment on above: Performed By: #### C MP, LIPA #### [facility] [address] [place] [address] Dr. Andrey Dorman Bilirubin [Mass/Vol] 0.4 mg/dL Normal 0.2-1.0 [facility] Comment on above: Performed By: #### C MP, LIPA #### [facility] [address] [place] [address] Dr. Andrey Dorman Calcium [Mass/Vol] 7.9 mg/dL Critically low 8.5-10.1 Th [facility] Comment on above: Performed By: #### C MP, LIPA #### [facility] [address] [place] [address] Dr. Andrey Dorman Chloride [Moles/Vol] 107 mmol/L Normal 98-107 [facility] Comment on above: Performed By: #### C MP, LIPA #### [facility] [address] [place] [address] Dr. Andrey Dorman CO2 [Moles/Vol] 16.3 mmol/L Critically low 21.0-32.0 [facility] Comment on above: Performed By: #### C MP, LIPA #### [facility] [address] [place] [address] Dr. Andrey Dorman Creatinine [Mass/Vol] 2.13 mg/dL Critically high 0.55-1.02 [facility] Comment on above: Performed By: #### C MP, LIPA #### [facility] [address] [place] [address] Dr. Andrey Dorman EGFR-AF CENTRAL AFRICAN 27 mL/min/1.73m2 Critically low >=60 [facility] Comment on above: Performed By: #### C MP, LIPA #### [facility] [address] [place] [address] Dr. Andrey Dorman EGFR-NON AF CENTRAL AFRICAN 23 mL/min/1.73m2 Critically low >=60 [facility] Comment on above: Performed By: #### C MP, LIPA #### [facility] [address] [place] [address] Dr. Andrey Dorman Globulin (S) [Mass/Vol] 3.7 g/dL Normal [facility] Comment on above: Performed By: #### C MP, LIPA #### [facility] [address] [place] [address] Dr. Andrey Dorman Glucose [Mass/Vol] 67 mg/dL Critically low 74-106 [facility] Comment on above: Performed By: #### C MP, LIPA #### [facility] [address] [place] [address] Dr. Andrey Dorman Potassium [Moles/Vol] 2.9 mmol/L Critically low 3.5-5.1 [facility] Comment on above: Performed By: #### C MP, LIPA #### [facility] [address] [address] [address] Andrey Dorman Protein [Mass/Vol] 6.8 g/dL Normal 6.4-8.2 [facility] Comment on above: Performed By: #### C MP, LIPA #### [facility] [address] [place] [address] Dr. Andrey Dorman Sodium [Moles/Vol] 139 mmol/L Normal 136-145 [facility] Comment on above: Performed By: #### C MP, LIPA #### [facility] [address] [place] [address] Dr. Andrey Dorman Urea nitrogen [Mass/Vol] 29.0 mg/dL Critically high 7.0-18.0 [facility] Comment on above: Performed By: #### C MP, LIPA #### [facility] [address] [place] [address] Dr. Andrey Dorman Urea nitrogen/Creatinin e [Mass ratio] 13.6 mg/mg Normal [facility] Comment on above: Performed By: #### C MP, LIPA #### [facility] [address] [place] [address] Dr. Andrey Dorman Albumin [Mass/Vol] 3.5 g/dL Normal 3.4-5.0 [facility] Comment on above: Performed By: #### C MADM, LIPA, WILLIAMS, CMP #### [facility] [address] [place] [address] Dr. Andrey Dorman Albumin/Globulin [Mass ratio] 0.9 {ratio} Normal [facility] Comment on above: Performed By: #### C MADM, LIPA, WILLIAMS, CMP #### [facility] [address] [place] [address] Dr. Andrey Dorman ALP [Catalytic activity/Vol] 62 U/L Normal 46-116 [facility] Comment on above: Performed By: #### C MADM, LIPA, WILLIAMS, CMP #### [facility] [address] [place] [address] Dr. Andrey Dorman ALT [Catalytic activity/Vol] 17 U/L Normal 14-59 [facility] Comment on above: Performed By: #### C MADM, LIPA, WILLIAMS, CMP #### [facility] [address] [address] [address] Andrey Dorman Anion gap [Moles/Vol] 18.3 mmol/L Normal [facility] Comment on above: Performed By: #### C MADM, LIPA, WILLIAMS, CMP #### [facility] [address] [place] [address] Dr. Andrey Dorman AST [Catalytic activity/Vol] 21 U/L Normal 15-37 [facility] Comment on above: Performed By: #### C MADM, LIPA, WILLIAMS, CMP #### [facility] [address] [place] [address] Dr. Andrey Dorman Bilirubin [Mass/Vol] 0.5 mg/dL Normal 0.2-1.0 [facility] Comment on above: Performed By: #### C MADM, LIPA, WILLIAMS, CMP #### [facility] [address] [place] [address] Dr. Andrey Dorman Calcium [Mass/Vol] 8.7 mg/dL Normal 8.5-10.1 [facility] Comment on above: Performed By: #### C MADM, LIPA, WILLIAMS, CMP #### [facility] [address] [place] [address] Dr. Andrey Dorman Chloride [Moles/Vol] 106 mmol/L Normal 98-107 [facility] Comment on above: Performed By: #### C MADM, LIPA, WILLIAMS, CMP #### [facility] [address] [place] [address] Dr. Andrey Dorman CO2 [Moles/Vol] 18.9 mmol/L Critically low 21.0-32.0 [facility] Comment on above: Performed By: #### C MADM, LIPA, WILLIAMS, CMP #### [facility] [address] [place] [address] Dr. Andrey Dorman Creatinine [Mass/Vol] 2.55 mg/dL Critically high 0.55-1.02 [facility] Comment on above: Performed By: #### C MADM, LIPA, WILLIAMS, CMP #### [facility] [address] [address] [address] Andrey Dorman EGFR-AF CENTRAL AFRICAN 22 mL/min/1.73m2 Critically low >=60 [facility] Comment on above: Performed By: #### C MADM, LIPA, WILLIAMS, CMP #### [facility] [address] [address] [address] Andrey Dorman EGFR-NON AF CENTRAL AFRICAN 18 mL/min/1.73m2 Critically low >=60 [facility] Comment on above: Performed By: #### C MADM, LIPA, WILLIAMS, CMP #### [facility] [address] [address] [address] Andrey Dorman Globulin (S) [Mass/Vol] 3.7 g/dL Normal [facility] Comment on above: Performed By: #### C MADM, LIPA, WILLIAMS, CMP #### [facility] [address] [place] [address] Dr. Andrey Dorman Glucose [Mass/Vol] 86 mg/dL Normal 74-106 [facility] Comment on above: Performed By: #### C MADM, LIPA, WILLIAMS, CMP #### [facility] [address] [place] [address] Dr. Andrey Dorman Potassium [Moles/Vol] 3.2 mmol/L Critically low 3.5-5.1 [facility] Comment on above: Performed By: #### C MADM, LIPA, WILLIAMS, CMP #### [facility] [address] [address] [address] Andrey Dorman Protein [Mass/Vol] 7.2 g/dL Normal 6.4-8.2 [facility] Comment on above: Performed By: #### C MADM, LIPA, WILLIAMS, CMP #### [facility] [address] [place] [address] Dr. Andrey Dorman Sodium [Moles/Vol] 140 mmol/L Normal 136-145 [facility] Comment on above: Performed By: #### C MADM, LIPA, WILLIAMS, CMP #### [facility] [address] [place], [place] [address] Dr. Andrey Dorman Urea nitrogen [Mass/Vol] 34.0 mg/dL Critically high 7.0-18.0 [facility] Comment on above: Performed By: #### C JOE MUÑOZ AMY, CMP #### [facility] [address] [place] [address] Dr. Andrey Dorman Urea nitrogen/Creatinin e [Mass ratio] 13.3 mg/mg Normal [facility] Comment on above: Performed By: #### C JOE MUÑOZ AMY, CMP #### [facility] [address] [place] [address] Dr. Andrey Dorman URINE MICROSCOPIC ONLYon BACTERIA TRACE Abnormal NONE SEEN The [facility] Comment on above: Performed By: #### D DIM #### [facility] [address] [place] [address] Dr. Andrey Dorman Bacteria identified Cx Nom (U) INDICATED Normal [facility] Comment on above: Performed By: #### D DIM #### [facility] [address] [place] [address] Dr. Andrey Dorman CAST NONE SEEN Normal NONE SEEN [facility] Comment on above: Performed By: #### D DIM #### [facility] [address] [place] [address] Dr. Andrey Dorman Crystals LM Nom (Urine sed) NONE SEEN Normal NONE SEEN [facility] Comment on above: Performed By: #### D DIM #### [facility] [address] [place] [address] Dr. Andrey Dorman Epithelial cells LM Ql (Urine sed) FEW Abnormal NONE SEEN /RARE [facility] Comment on above: Performed By: #### D DIM #### [facility] [address] [place] [address] Dr. Andrey Dorman MUCOUS NONE SEEN Normal NONE SEEN [facility] Comment on above: Performed By: #### D DIM #### [facility] [address] [place] [address] Dr. Andrey Dorman RBC 0-2 Normal 0-2 [facility] Comment on above: Performed By: #### D DIM #### [facility] [address] [place], [place] [address] Dr. Andrey Dorman WBC 10-20 Abnormal NONE SEEN [facility] Comment on above: Performed By: #### D DIM #### [facility] [address] [place], [place] [address] Dr. Andrey Dorman XR ABD FLAT UP_PA Jesus 05-14 XR ABD FLAT UP_PA CH EXAM: XR ABD FLAT UP_PA CH HISTORY: NAUSEA WITH VOMITING, UNSPECIFIED COMPARISON: Chest X-ray performed 02/05/2021. TECHNIQUE: Single frontal view of the chest and supine and upright views of the abdomen are obtained. FINDINGS: The cardiomediastinal silhouette is nonenlarged. Pulmonary vascular markings are within normal limits. There is no focal airspace consolidation, sizable effusion or pneumothorax. Hyperinflation persists. No free air under the diaphragm. The bowel gas pattern is nonobstructive. No abnormally dilated loops of small or large bowel are evident. Gas is seen within the stomach which is not abnormally distended with a otherwise generalized paucity of bowel gas. No visceromegaly or suspicious calcifications are identified. Punctate calcifications likely of the spleen suggesting remote granulomatous process. The osseous structures appear grossly intact. IMPRESSION: 1. No acute cardiopulmonary process identified. 2. Emphysema. 3. Nonobstructive bowel gas pattern. Generalized paucity of bowel gas. Electronically authenticated by: RONIT MORALES Date: 2022-05-14 00:23 Normal [facility] XR SHOULDER RT INJon 023 XR SHOULDER RT INJ EXAMINATION: XR SHOULDER RT INJ HISTORY: Arthritis of shoulder region joint COMPARISON: No relevant comparison available. FLUOROSCOPY TIME: Fluoro time measures 0.6 minutes and 4 images were obtained. TECHNIQUE: A joint injection was performed in the usual sterile manner after obtaining informed consent. Standard level fluoroscopic mode of operation utilized. FINDINGS: JOINT: Right shoulder NEEDLE: 22 gauge, 3.5 spinal needle. MEDICATION: 2cc buffered 1% lidocaine for subcutaneous anesthesia 2cc Omnipaque-300 iodinated contrast to visualize the joint space Mixture of Kenalog 40 mg, 0.5% Bupivacaine 2 mL and Omnipaque 300 4 mL was injected into the joint space. TECHNIQUE: Anterior approach with prior localization of the femoral artery. A single stick was successful in gaining access to the joint space. CLINICAL: Slight decrease in pain following the injection (6/10 preinjection; 4/10 post injection). COMPLICATIONS: None. OTHER: Negative. IMPRESSION: 1. Technically successful right shoulder injection with slight decrease in pain immediately following procedure. Electronically authenticated by: FLY EARL Date: 2022-02-27 14:45 Normal [facility] PROGRESSon 06-03-2017 [facility] NOTES [facility] PROGRESSon 12-09-2016 [facility] NOTES Normal [facility] Encounters Encounter Date Encounter Type Care Provider Facility Start: 11-18-2022 End: 11-18-2022 ambulatory Moreno Canales Other [facility] Other Start: 11-18-2022 Office outpatient vi sit 15 minutes Moreno Canales [facility] Start: 11-05-2022 End: 11-05-2022 ambulatory Marcela Rocha Facility:[facility] Start: 11-05-2022 End: 11-05-2022 ambulatory MD Marcela Rocha Work Phone: [facility] Work Phone: Start: 11-05-2022 End: 11-05-2022 Discharged Recurring MD Marcela Rocha Work Phone: [facility] [place] Start: 10-14-2022 Office outpatient ne w 30 minutes Moreno Canales [facility] Start: 10-14-2022 End: 10-14-2022 ambulatory MD Marcela Rocha Work Phone: [facility] Work Phone: Start: 10-14-2022 End: 10-14-2022 Patient encounter procedure MD Marcela Rocha Work Phone: [facility] Start: 07-09-[address] MARCELA ROCHA . Facili ty:[facility] Start: 07-03-2022 End: 07-04-[address] MARCELA ROCHA . Facility:[facility] Start: 06-27-2022 End: 06-28-[address] MARCELA ROCHA . Facility:[facility] Start: 06-23-[address] MARCELA ROCHA . Facili ty:[facility] Start: 06-02-2022 End: 06-03-[address] MARCELA ROCHA . Facility:[facility] Start: 05-14-2022 End: 05-15-[address] MARCELA ROCHA . Facility:[facility] Start: 02-27-2022 End: 02-27-[address] MARCELA ROCHA . Facility:[facility] Start: 02-20-2022 End: 02-21-[address] MARCELA ROCHA . Facility:[facility] Start: 12-26-2020 End: 12-26-2020 ambulatory Jordi Lindsay Other [facility] Other Start: 12-26-2020 Office outpatient vi sit 15 minutes Jordi Lindsay [facility] [place] Start: 06-03-2017 Ambulatory PRUDENCIO GHAZOUL [facility] Start: 12-09-2016 Ambulatory PRUDENCIO GHAZOUL [facility] Payers Date Payer Category Payer Self-pay [id number] 1958 Medicare [id number] 1958 Medicare [id number] 1945 Unknown [id number] 2.16.84 [id number] 1945 Unknown [id number] 2..84 [id number] 1945 Unknown [id number] 2..84 [id number] 1945 Unknown [id number] .16.84 [id number] 1945 Unknown [id number] 2.16.84 [id number] 1945 Unknown [id number] 2.16.84 [id number] 1945 Unknown [id number] 2.16.84 [id number] 1945 Unknown [id number] 2.16.84 [id number] Medicare [id number] 2.16.8 [id number] Medicare Medicare [id number] Medicare Medicare Outpatient [id number] Unknown [facility] BC/BS [id number] Unknown [id number] 2.16.8 [id number] Social History Date Type Detail Facility Unknown if ever smoked [facility] Other Start: 11-27-1966 End: 11-23-1974 Sex Assigned At [email or web address] Other Start: 11-16-2020 End: 11-16-2020 Tobacco smoking status ORIS Ex-smoker (finding) [facility] Start: 1945 Sex Assigned At Female F [facility] Evaluation note 11-18-2022 Note Date & Type Note Facility 11-18-2022 Evaluation note Encounter Date Diagnosis Assessment Notes Nov, Acute pain of right shoulder (ICD-10 - M25.511) Nov, Strain of right trapezius muscle, initial encounter (ICD-10 - S46.811A) Patient instructed on the use of heat. Work on shoulder shrugs and rotation to help work muscle, this was demonstrated. Cortisone injection performed into the tender point of the right trapezius, patient tolerated well. Discussed possible referral to pain management for further treatment options [facility] Other Evaluation note 10-14-2022 Note Date & Type Note Facility 10-14-2022 Evaluation note Encounter Date Diagnosis Assessment Notes Oct, Acute pain of right shoulder (ICD-10 - M25.511) Appears to have posterior medial capsular strain. We will get patient into PT to help reduce pain and any inflammation present. Patient can f/u in 3-4 months, at that time if symptoms aren't improved, then we can consider an injection. [facility] Other Clinical Note 06-27-2022 Note Date & Type Note Facility 06-27-2022 Note PROCEDURE: XR SHOULD ER RT 2V or > HISTORY: Pain of right shoulder joint , chronic COMPARISON: XR shoulder right 06/02/2022 FINDINGS: BONES:Mild degenerative changes of acromioclavicular joint. No fracture, dislocation, bone lesion. Unremarkable humeral head and glenoid. Unremarkable scapula and ribs. SOFT TISSUES:No visible soft tissue swelling. EFFUSION:None visible. OTHER: Negative. IMPRESSION: 1. No acute bone abnormality. 2. Mild degenerative changes of the acromioclavicular joint; stable. Electronically authenticated by: FLY EARL Date: 2022-06-27 12:58 [facility] Clinical Note 06-02-2022 Note Date & Type Note Facility 06-02-2022 Note PROCEDURE: XR SHOULD ER RT 2V or > HISTORY: Pain of right shoulder joint COMPARISON: XR shoulder right 02/20/2022 FINDINGS: BONES:Mild narrowing and tiny osteophytes involving the acromioclavicular joint. Unremarkable humeral head and glenohumeral joint. SOFT TISSUES:No visible soft tissue swelling. EFFUSION:None visible. OTHER: Negative. IMPRESSION: 1. No acute bone abnormality. 2. Mild degenerative changes of the acromioclavicular joint; stable. Electronically authenticated by: FLY EARL Date: 2022-06-02 10:01 [facility] Clinical Note 02-20-2022 Note Date & Type Note Facility 02-20-2022 Note PROCEDURE: XR SHOULD ER RT 2V or > HISTORY: Impingement syndrome of shoulder region ; chronic right shoulder pain COMPARISON: None. FINDINGS: BONES:Mild degenerative change of the acromioclavicular joint. Unremarkable humeral head and glenohumeral joint. No fracture, dislocation, or bone lesion. SOFT TISSUES:No visible soft tissue swelling. EFFUSION:None visible. OTHER: Negative. IMPRESSION: 1. Mild degenerative changes. 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 Hopefully we can review that first part of next week to make a recommendation in terms of her driving. Otherwise this still most likely fits a pattern of amyloid angiopathy and I would follow her conservatively. [facility] Other Evaluation note Note Date & Type Note Facility Evaluation note No assessment information availa [facility] Work Phone: History general Narrative - Reported Note Date & Type Note Facility History general Narrative - Reported Type Medical History Hypothyroidism Medical History Hypertension Medical History stroke [facility] Other Summary Purpose Family History No Family History Records FoundNo Family History Records FoundNo Family History Records Found Advance Directives No Advanced Directives Records Found Advance Directive Response Recorded Date/ Time Advance Directives Yes November 20, 2020 1:38pm Advance Directive Response Recorded Date/ Time Advance Directives Yes November 20, 2020 12:38pm Chief Complaint and Reason for Visit Chief Complaint R Shoulder Pain Additional Source Comments INFORMATION SOURCE (unrecogn ized section and content) DATE CREATED AUTHOR 07/30/2017 [facility] DATE CREATED AUTHOR AUTHOR'S ORGANIZ ATION 07/18/2022 [facility] DATE CREATED AUTHOR AUTHOR'S ORGANIZ ATION 03/20/2023 [facility] REASON FOR VISIT (unrecogniz ed section and content) TEST RESULTSRight Shoulder P ainRecheck Right Shoulder Care Teams (unrecognized sec tion and content) Team Status: Active Member Role Status Dates Marcela Rocha MD Primary Care Provider Active Team Status: Inactive Member Role Status Dates Marcela Rocha MD Primary Care Provider Active Moreno Canales MD Attending Provider Active Goals (unrecognized section and content) Goals may be documented in a n alternate section FOR RECORDS PERTAINING TO PATIENTS WHO ARE OR HAVE BEEN ENROLLED IN A CHEMICAL DEPENDENCY/SUBSTANCEABUSE PROGRAM, SOME INFORMATION MAY BE OMITTED. This clinical summary was aggregated from multiple sources. Caution should be exercised in using it in the provision of clinical care. This summary normalizes information from multiple sources, and as a consequence, information in this document may materially change the coding, format and clinical context of patient data. In addition, data may be omitted in some cases. CLINICAL DECISIONS SHOULD BE BASED ON THE PRIMARY CLINICAL RECORDS. [facility]. provides no warranty or guarantee of the accuracy or completeness of information in this document.
--- OUTSIDE RECORDS SUMMARY | 2023-12-04 11:24 | XMS_ITS | CCD ---
Author Organization [facility] Care Team Providers Care Floor Worker Name Role Phone GHAZOUL, PRUDENCIO Unavailable Unavailable [...] Unavailable HOY ., DR MEDRANO Consulting Unavailable PERHAM, DR DIPTI Underwood Consulting Unavailable HOY ., [...] MEDRANO Primary Care Unavailable HOY ., DR MEDRAON Attending Unavailable HOY ., DR MEDRANO Consulting Unavailable HOY ., DR MEDRANO Primary Care Unavailable HOY ., DR MEDRANO Attending Unavailable HOY ., DR MEDRANO Admitting Unavailable HOY ., DR MEDRANO Admitting Unavailable HOY ., DR MEDRANO Attending Unavailable HOY ., DR MEDRANO Consulting Unavailable HOY ., DR MEDRANO Primary Care Unavailable MICHAEL VERAS Unavailable RONIT MORALES Consulting Unavailable HOY ., DR MEDRANO Admitting Unavailable HOY ., DR MEDRANO Attending Unavailable HOY ., DR MEDRANO Consulting Unavailable HOY ., DR MEDRANO Primary Care Unavailable DR FLY EARL Consulting Unavailable MD Marcela Rocha Primary Care Provider [phone] MD Moreno Canales Attending Provider Moreno Canales Unavailable MD Marcela Rocha Primary Care Provider [phone] MD Moreno Canales Attending Provider Marcela Rocha Primary Care Unavailable Moreno Canales Attending Unavailable Moreno Canales Admitting Unavailable Allergies Allergy Classification Reported Allergen(s) Allergy Type Date of Onset Reaction(s) Facility (3 sources) Penicillin V Drug Allergy [employer] Other (1 source) Baclofen Drug Allergy 3 [facility] (1 source) Cefadroxil Drug Allergy 3 [facility] (1 source) Ibuprofen Drug Allergy 4 [facility] (1 source) Iothalamate Drug Allergy 3 [facility] (3 sources) Penicillins Drug allergy (disorder) 5 Vomiting [facility] (1 source) Sulfamethoxazole / Trimethoprim Drug Allergy 5 [facility] (3 sources) Meperidine; Translations: [meperidine] Drug Allergy 1 [facility] (3 sources) Sulfamethoxazole; Translations: [sulfamethoxazole] Drug Allergy 1 [facility] (3 sources) Trimethoprim; Translations: [trimethoprim] Drug Allergy 1 [facility] (1 source) Penicillin Drug Allergy 3 [facility] (1 source) Penicillins Drug allergy (disorder) 1 [facility] Medications Current Medications Medication Drug [...] Bedtime November 15, 2020 11:00pm estrogens, conjugated (fdc) 0.9 mg oral tablet (5 sources) Estrogen [...] 02-27-2022 Chronic Other aftercare (1 source) Other alf (current) drug therapy; Translations: [OTH USP CURRENT DRUG THERAPY] Onset: 06-04-2022 Episodic Other [...] AMILCAR JACKSON Date: 2022-07-09 14:07 Normal [facility] CREATININEon 07-03-2022 Creatinine [Mass/Vol] 2.97 mg/dL Critically high 0.55-1.02 [facility] Comment on above: Performed By: #### C MP, LIPA #### [facility] [address] [address] [address] Andrey Dorman EGFR-AF HONDURAN 19 mL/min/1.73m2 Critically low >=60 [facility] Comment on above: Performed By: #### C MP, LIPA #### [facility] [address] [address] [address] Andrey Dorman EGFR-NON AF HONDURAN 15 mL/min/1.73m2 Critically low >=60 [facility] Comment on above: Performed By: #### C MP, LIPA #### [facility] [address] [address] ABD/PELVIS WO CONon [...] DIPTI MCGILL Date: 2022-07-03 14:20 Normal [facility] US SINGLE QUAD RT UPPERon US [...] FLY EARL Date: 2022-06-02 11:40 Normal [facility] CULTURE URINEon 05-16-2022 CULTURE URINE Isolate [...] Trimethoprim/Sulfametho xazole <=20 S F Normal [facility] Comment on above: Performed By: #### C JOE GAINES #### [facility] [address] [place] [address] Dr. Andrey Dorman BNPon 05-15-2022 Natriuretic peptide B (Bld) [Mass/Vol] 7068.0 pg/mL Critically high <=1,800.0 [facility] Comment on above: Performed By: #### C MP, LIPA #### [facility] [address] [place] [address] Dr. Andrey Dorman CBC AUTO DIFFon 05-15-2022 BASO # 0.1 103/ul Normal 0.0-0.1 [facility] Comment on above: Performed By: #### C MP, LIPA #### [facility] [address] [place] [address] Dr. Andrey Dorman Basophils/100 WBC (Bld) 0.8 % Normal 0.2-2.0 [facility] Comment on above: Performed By: #### C MP, LIPA #### [facility] [address] [place] [address] Dr. Andrey Dorman EO # 0.2 103/ul Normal 0.0-0.7 [facility] Comment on above: Performed By: #### C MP, LIPA #### [facility] [address] [place] [address] Dr. Andrey Dorman Eosinophils/100 WBC (Bld) 3.1 % Normal 0.9-7.0 [facility] Comment on above: Performed By: #### C MP, LIPA #### [facility] [address] [place] [address] Dr. Andrey Dorman Erythrocyte distribution width (RBC) [Ratio] 13.5 % Normal 11.0-15.0 [facility] Comment on above: Performed By: #### C MP, LIPA #### [facility] [address] [place] [address] Dr. Andrey Dorman Hematocrit (Bld) [Volume fraction] 30.1 % Critically low 36.0-48.0 [facility] Comment on above: Performed By: #### C MP, LIPA #### [facility] [address] [place] [address] Dr. Andrey Dorman Hemoglobin (Bld) [Mass/Vol] 11.2 g/dL Critically low 12.0-16.0 [facility] Comment on above: Performed By: #### C MP, LIPA #### [facility] [address] [address] [address] Andrey Dorman IG # 0.02 10e3/ul Normal 0.00-0.03 [facility] Comment on above: Performed By: #### C MP, LIPA #### [facility] [address] [address] [address] Andrey Dorman IG % 0.3 % Normal 0.0-0.5 [facility] Comment on above: Performed By: #### C MP, LIPA #### [facility] [address] [address] [address] Andrey Dorman LYMPH # 1.4 103/ul Normal 1.2-3.8 [facility] Comment on above: Performed By: #### C MP, LIPA #### [facility] [address] [address] [address] Andrey Dorman Lymphocytes/100 WBC (Bld) 19.6 % Critically low 20.5-60.0 [facility] Comment on above: Performed By: #### C MP, LIPA #### [facility] [address] [address] [address] Andrey Dorman MANUAL DIFF REQ NO Normal [facility] Comment on above: Performed By: #### C MP, LIPA #### [facility] [address] [address] [address] Andrey Dorman MCH (RBC) [Entitic mass] 41.0 pg Critically high 26.7-34.0 [facility] Comment on above: Performed By: #### C MP, LIPA #### [facility] [address] [address] [address] Andrey Dorman MCHC (RBC) [Mass/Vol] 37.2 g/dL Critically high 29.9-35.2 [facility] Comment on above: Performed By: #### C MP, LIPA #### [facility] [address] [address] [address] Andrey Dorman MCV (RBC) [Entitic vol] 110.3 fL Critically high 81.0-99.0 [facility] Comment on above: Performed By: #### C MP, LIPA #### [facility] [address] [address] [address] Andrey Dorman MONO # 0.7 103/ul Normal 0.3-0.8 [facility] Comment on above: Performed By: #### C MP, LIPA #### [facility] [address] [place] [address] Dr. Andrey Dorman Monocytes/100 WBC (Bld) 10.1 % Normal 1.7-12.0 [facility] Comment on above: Performed By: #### C MP, LIPA #### [facility] [address] [place] [address] Dr. Andrey Dorman NEUT # 4.7 103/ul Normal 1.4-6.5 [facility] Comment on above: Performed By: #### C MP, LIPA #### [facility] [address] [place] [address] Dr. Andrey Dorman Neutrophils/100 WBC (Bld) 66.1 % Normal 43.0-75.0 [facility] Comment on above: Performed By: #### C MP, LIPA #### [facility] [address] [place] [address] Dr. Andrey Dorman Platelet mean volume (Bld) [Entitic vol] 9.9 fL Normal 9.5-13.5 [facility] Comment on above: Performed By: #### C MP, LIPA #### [facility] [address] [place] [address] Dr. Andrey Dorman PLT 161 103/ul Normal 150-450 [facility] Comment on above: Performed By: #### C MP, LIPA #### [facility] [address] [address] [address] Andrey Dorman RBC 2.73 106/ul Critically low 4.20-5.40 [facility] Comment on above: Performed By: #### C MP, LIPA #### [facility] [address] [place] [address] Dr. Andrey Dorman WBC 7.2 103/ul Normal 4.0-11.0 [facility] Comment on above: Performed By: #### C JOE GAINES #### [facility] [address] [address] [address] Andrey Dorman ECHOCARDIO M/2D COMPLETEon 0 05-15-2022 ECHOCARDIO M/2D COMPLETE Patient: TONY BELL Exam Date: 05/15/2022 : 1945 Gender:F Ordering : DR MARCELA ROCHA . Admission #: [id number] Family : Order #: [id number] CLICK HERE TO VIEW EXAM ECHOCARDIOGRAM REPORT [...] M.D. on 05/15/2022 at 17:46 Normal [facility] PROF CHEM 8 (BAS METB)on Anion gap [Moles/Vol] 14.3 mmol/L Normal [facility] Comment on above: Performed By: #### B COMMISSION AUDITOR, BMP #### [facility] [address] [place] [address] Dr. Andrey Dorman Calcium [Mass/Vol] 7.9 mg/dL Critically low 8.5-10.1 [facility] Comment on above: Performed By: #### B COMMISSION AUDITOR, BMP #### [facility] [address] [address] [address] Andrey Dorman Chloride [Moles/Vol] 110 mmol/L Critically high 98-107 [facility] Comment on above: Performed By: #### B COMMISSION AUDITOR, BMP #### [facility] [address] [place] [address] Dr. Andrey Dorman CO2 [Moles/Vol] 19.2 mmol/L Critically low 21.0-32.0 [facility] Comment on above: Performed By: #### B COMMISSION AUDITOR, BMP #### [facility] [address] [place] [address] Dr. Andrey Dorman Creatinine [Mass/Vol] 2.17 mg/dL Critically high 0.55-1.02 [facility] Comment on above: Performed By: #### B COMMISSION AUDITOR, BMP #### [facility] [address] [place] [address] Dr. Andrey Dorman EGFR-AF HONDURAN 27 mL/min/1.73m2 Critically low >=60 [facility] Comment on above: Performed By: #### B COMMISSION AUDITOR, BMP #### [facility] [address] [place] [address] Dr. Andrey Dorman EGFR-NON AF HONDURAN 22 mL/min/1.73m2 Critically low >=60 [facility] Comment on above: Performed By: #### B COMMISSION AUDITOR, BMP #### [facility] [address] [place] [address] Dr. Andrey Dorman Glucose [Mass/Vol] 82 mg/dL Normal 74-106 [facility] Comment on above: Performed By: #### B COMMISSION AUDITOR, BMP #### [facility] [address] [place] [address] Dr. Andrey Dorman Potassium [Moles/Vol] 3.5 mmol/L Normal 3.5-5.1 [facility] Comment on above: Performed By: #### B COMMISSION AUDITOR, BMP #### [facility] [address] [place] [address] Dr. Andrey Dorman Sodium [Moles/Vol] 140 mmol/L Normal 136-145 [facility] Comment on above: Performed By: #### B COMMISSION AUDITOR, BMP #### [facility] [address] [place] [address] Dr. Andrey Dorman Urea nitrogen [Mass/Vol] 26.0 mg/dL Critically high 7.0-18.0 [facility] Comment on above: Performed By: #### B COMMISSION AUDITOR, BMP #### [facility] [address] [place] [address] Dr. Andrey Dorman Urea nitrogen/Creatinin e [Mass ratio] 12.0 mg/mg Normal [facility] Comment on above: Performed By: #### B COMMISSION AUDITOR, BMP #### [facility] [address] [place] [address] Dr. Andrey Dorman AMYLASEon 05-14-2022 Amylase [Catalytic activity/Vol] 58 U/L Normal 25-115 [facility] Comment on above: Performed By: #### C MADM, LIPA, WILLIAMS, CMP #### [facility] [address] [place] [address] Dr. Andrey Dorman CARDIAC WENDY 3-6on 3 CK [Catalytic activity/Vol] 145 U/L Normal 26-192 [facility] Comment on above: Performed By: #### C MP, LIPA #### [facility] [address] [place] [address] Dr. Andrey Dorman CK.MB [Mass/Vol] 4.89 ng/mL Critically high <=3.60 [facility] Comment on above: Performed By: #### C MP, LIPA #### [facility] [address] [place] [address] Dr. Andrey Dorman HSTROP 27.2 pg/mL Normal 4.0-51.3 [facility] Comment on above: Result Comment: CUT- OFF POINTS HAVE BEEN ESTABLISHED BASED ON THE FOURTH UNIVERSAL DEFINITIONS OF MYOCARDIAL INFARCTION. THE UPPER REFERENCE LIMIT (URL) OF TROPONIN, DEFINED THE 99TH PERCENTILE OF cTnI DISTRIBUTION IN A REFERENCE POPULATION, HAS BEEN CONFIRMED THE DECISION THRESHOLD FOR [place] DIAGNOSIS. Performed By: #### C MP, LIPA #### [facility] [address] [place] [address] Dr. Andrey Dorman CK [Catalytic activity/Vol] 159 U/L Normal 26-192 [facility] Comment on above: Performed By: #### C MREP #### [facility] [address] [place] [address] Dr. Andrey Dorman CK.MB [Mass/Vol] 5.18 ng/mL Critically high <=3.60 [facility] Comment on above: Performed By: #### C MREP #### [facility] [address] [place] [address] Dr. Andrey Dorman HSTROP 17.5 pg/mL Normal 4.0-51.3 [facility] Comment on above: Result Comment: CUT- OFF POINTS HAVE BEEN ESTABLISHED BASED ON THE FOURTH UNIVERSAL DEFINITIONS OF MYOCARDIAL INFARCTION. THE UPPER REFERENCE LIMIT (URL) OF TROPONIN, DEFINED THE 99TH PERCENTILE OF cTnI DISTRIBUTION IN A REFERENCE POPULATION, HAS BEEN CONFIRMED THE DECISION THRESHOLD FOR [place] DIAGNOSIS. Performed By: #### C MREP #### [facility] [address] [place] [address] Dr. Andrey Dorman CARDIAC WENDY ADMITon 023 CK [Catalytic activity/Vol] 162 U/L Normal 26-192 [facility] Comment on above: Performed By: #### C MADM, LIPA, WILLIAMS, CMP #### [facility] [address] [place] [address] Dr. Andrey Dorman CK.MB [Mass/Vol] 5.11 ng/mL Critically high <=3.60 [facility] Comment on above: Performed By: #### C MADM, LIPA, WILLIAMS, CMP #### [facility] [address] [place] [address] Dr. Andrey Dorman HSTROP 13.8 pg/mL Normal 4.0-51.3 [facility] Comment on above: Result Comment: CUT- OFF POINTS HAVE BEEN ESTABLISHED BASED ON THE FOURTH UNIVERSAL DEFINITIONS OF MYOCARDIAL INFARCTION. THE UPPER REFERENCE LIMIT (URL) OF TROPONIN, DEFINED THE 99TH PERCENTILE OF cTnI DISTRIBUTION IN A REFERENCE POPULATION, HAS BEEN CONFIRMED THE DECISION THRESHOLD FOR [place] DIAGNOSIS. Performed By: #### C MADM, LIPA, WILLIAMS, CMP #### [facility] [address] [address] [address] Andrey Dorman RAMY 195 ng/mL Critically high 9-82 [facility] Comment on above: Performed By: #### C PAIGEM, PERRIA, WILLIAMS, CMP #### [facility] [address] [address] [address] Andrey Dorman CBC AUTO DIFFon 05-14-2022 BASO # 0.1 103/ul Normal 0.0-0.1 [facility] Comment on above: Performed By: #### C MP, LIPA #### [facility] [address] [address] [address] Andrey Dorman Basophils/100 WBC (Bld) 1.0 % Normal 0.2-2.0 [facility] Comment on above: Performed By: #### C MP, LIPA #### [facility] [address] [place] [address] Dr. Andrey Dorman EO # 0.1 103/ul Normal 0.0-0.7 [facility] Comment on above: Performed By: #### C MP, LIPA #### [facility] [address] [place] [address] Dr. Andrey Dorman Eosinophils/100 WBC (Bld) 0.8 % Critically low 0.9-7.0 [facility] Comment on above: Performed By: #### C MP, LIPA #### [facility] [address] [place] [address] Dr. Andrey Dorman Erythrocyte distribution width (RBC) [Ratio] 12.6 % Normal 11.0-15.0 [facility] Comment on above: Performed By: #### C MP, LIPA #### [facility] [address] [address] [address] Andrey Dorman Hematocrit (Bld) [Volume fraction] 34.1 % Critically low 36.0-48.0 [facility] Comment on above: Performed By: #### C MP, LIPA #### [facility] [address] [place] [address] Dr. Andrey Dorman Hemoglobin (Bld) [Mass/Vol] 11.7 g/dL Critically low 12.0-16.0 [facility] Comment on above: Performed By: #### C MP, LIPA #### [facility] [address] [place] [address] Dr. Andrey Dorman IG # 0.03 10e3/ul Normal 0.00-0.03 [facility] Comment on above: Performed By: #### C MP, LIPA #### [facility] [address] [place] [address] Dr. Andrey Dorman IG % 0.4 % Normal 0.0-0.5 [facility] Comment on above: Performed By: #### C MP, LIPA #### [facility] [address] [place] [address] Dr. Andrey Dorman LYMPH # 1.1 103/ul Critically low 1.2-3.8 [facility] Comment on above: Performed By: #### C MP, LIPA #### [facility] [address] [address] [address] Andrey Dorman Lymphocytes/100 WBC (Bld) 13.8 % Critically low 20.5-60.0 [facility] Comment on above: Performed By: #### C MP, LIPA #### [facility] [address] [address] [address] Andrey Dorman MANUAL DIFF REQ NO Normal [facility] Comment on above: Performed By: #### C MP, LIPA #### [facility] [address] [place] [address] Dr. Andrey Dorman MCH (RBC) [Entitic mass] 35.8 pg Critically high 26.7-34.0 [facility] Comment on above: Performed By: #### C MP, LIPA #### [facility] [address] [place] [address] Dr. Andrey Dorman MCHC (RBC) [Mass/Vol] 34.3 g/dL Normal 29.9-35.2 [facility] Comment on above: Performed By: #### C MP, LIPA #### [facility] [address] [place] [address] Dr. Andrey Dorman MCV (RBC) [Entitic vol] 104.3 fL Critically high 81.0-99.0 [facility] Comment on above: Performed By: #### C MP, LIPA #### [facility] [address] [place] [address] Dr. Andrey Dorman MONO # 0.6 103/ul Normal 0.3-0.8 [facility] Comment on above: Performed By: #### C MP, LIPA #### [facility] [address] [place] [address] Dr. Andrey Dorman Monocytes/100 WBC (Bld) 7.6 % Normal 1.7-12.0 [facility] Comment on above: Performed By: #### C MP, LIPA #### [facility] [address] [place] [address] Dr. Andrey Dorman NEUT # 6.3 103/ul Normal 1.4-6.5 [facility] Comment on above: Performed By: #### C MP, LIPA #### [facility] [address] [place] [address] Dr. Andrey Dorman Neutrophils/100 WBC (Bld) 76.4 % Critically high 43.0-75.0 [facility] Comment on above: Performed By: #### C MP, LIPA #### [facility] [address] [place] [address] Dr. Andrey Dorman Platelet mean volume (Bld) [Entitic vol] 10.2 fL Normal 9.5-13.5 [facility] Comment on above: Performed By: #### C MP, LIPA #### [facility] [address] [place] [address] Dr. Andrey Dorman PLT 189 103/ul Normal 150-450 [facility] Comment on above: Performed By: #### C LIANA, LIPA #### [facility] [address] [place] [address] Dr. Andrey Dorman RBC 3.27 106/ul Critically low 4.20-5.40 [facility] Comment on above: Performed By: #### C LIANA, LIPA #### [facility] [address] [place] [address] Dr. Andrey Dorman WBC 8.3 103/ul Normal 4.0-11.0 [facility] Comment on above: Performed By: #### C LIANA LIPA #### [facility] [address] [place] [address] Dr. Andrey Dorman BASO # 0.1 103/ul Normal 0.0-0.1 [facility] Comment on above: Performed By: #### K #### [facility] [address] [place] [address] Dr. Andrey Dorman Basophils/100 WBC (Bld) 1.3 % Normal 0.2-2.0 [facility] Comment on above: Performed By: #### K #### [facility] [address] [place] [address] Dr. Andrey Dorman EO # 0.1 103/ul Normal 0.0-0.7 [facility] Comment on above: Performed By: #### K #### [facility] [address] [place] [address] Dr. Andrey Dorman Eosinophils/100 WBC (Bld) 1.0 % Normal 0.9-7.0 [facility] Comment on above: Performed By: #### K #### [facility] [address] [place] [address] Dr. Andrey Dorman Erythrocyte distribution width (RBC) [Ratio] 12.4 % Normal 11.0-15.0 [facility] Comment on above: Performed By: #### K #### [facility] [address] [place] [address] Dr. Andrey Dorman Hematocrit (Bld) [Volume fraction] 33.7 % Critically low 36.0-48.0 [facility] Comment on above: Performed By: #### K #### [facility] [address] [place] [address] Dr. Andrey Dorman Hemoglobin (Bld) [Mass/Vol] 11.9 g/dL Critically low 12.0-16.0 [facility] Comment on above: Performed By: #### K #### [facility] [address] [place] [address] Dr. Andrey Dorman IG # 0.02 10e3/ul Normal 0.00-0.03 [facility] Comment on above: Performed By: #### K #### [facility] [address] [place] [address] Dr. Andrey Dorman IG % 0.2 % Normal 0.0-0.5 [facility] Comment on above: Performed By: #### K #### [facility] [address] [place] [address] Dr. Andrey Dorman LYMPH # 1.0 103/ul Critically low 1.2-3.8 [facility] Comment on above: Performed By: #### K #### [facility] [address] [place] [address] Dr. Andrey Dorman Lymphocytes/100 WBC (Bld) 11.7 % Critically low 20.5-60.0 [facility] Comment on above: Performed By: #### K #### [facility] [address] [place] [address] Dr. Andrey Dorman MANUAL DIFF REQ NO Normal [facility] Comment on above: Performed By: #### K #### [facility] [address] [place] [address] Dr. Andrey Dorman MCH (RBC) [Entitic mass] 37.3 pg Critically high 26.7-34.0 [facility] Comment on above: Performed By: #### K #### [facility] [address] [place] [address] Dr. Andrey Dorman MCHC (RBC) [Mass/Vol] 35.3 g/dL Critically high 29.9-35.2 [facility] Comment on above: Performed By: #### K #### [facility] [address] [address] [address] Andrey Dorman MCV (RBC) [Entitic vol] 105.6 fL Critically high 81.0-99.0 [facility] Comment on above: Performed By: #### K #### [facility] [address] [address] [address] Andrey Droman MONO # 0.4 103/ul Normal 0.3-0.8 [facility] Comment on above: Performed By: #### K #### [facility] [address] [address] [address] Andrey Dorman Monocytes/100 WBC (Bld) 4.9 % Normal 1.7-12.0 [facility] Comment on above: Performed By: #### K #### [facility] [address] [address] [address] Andrey Dorman NEUT # 6.7 103/ul Critically high 1.4-6.5 [facility] Comment on above: Performed By: #### K #### [facility] [address] [address] [address] Andrey Dorman Neutrophils/100 WBC (Bld) 80.9 % Critically high 43.0-75.0 [facility] Comment on above: Performed By: #### K #### [facility] [address] [address] [address] Andrey Dorman Platelet mean volume (Bld) [Entitic vol] 10.2 fL Normal 9.5-13.5 [facility] Comment on above: Performed By: #### K #### [facility] [address] [address] [address] Andrey Dorman PLT 173 103/ul Normal 150-450 [facility] Comment on above: Performed By: #### K #### [facility] [address] [address] [address] Andrey Dorman RBC 3.19 106/ul Critically low 4.20-5.40 [facility] [place] [facility] Comment on above: Performed By: #### K #### [facility] [address] [place], [place] [address] Dr. Andrey Dorman WBC 8.3 103/ul Normal 4.0-11.0 [facility] Comment on above: Performed By: #### K #### [facility] [address] [place], [place] [address] CHEST WO CONon [...] RONIT MORALES Date: 2022-05-14 02:48 Normal [facility] Covid-19 PCR (CVDTB)on SARS-CoV-2 (COVID-19) RNA DAYANNA+probe Ql (Unsp spec) Not detected Normal NOT DETECTED [facility] Comment on above: Result Comment: When [...] for this test is supported by the [place] of Health and Human Service's declaration that [...] Performed By: #### C MP, LIPA #### [facility] [address] [place] [address] Dr. Andrey Dorman D-DIMERon 05-14-2022 D-DIMER 2.00 mg/L FEU Critically high <=0.59 [facility] Comment on above: Performed By: #### D DIM #### [facility] [address] [place] [address] Dr. Andrey Dorman D-DIMER COMMENTS SEE BELOW Normal [facility] Comment on above: Result Comment: Incr eases [...] hospitalization. Performed By: #### D DIM #### [facility] [address] [place] [address] Dr. Andrey Dorman ER URINE PROFILEon 3 Bilirubin Ql (U) Negative Normal NEGATIVE [facility] Comment on above: Performed By: #### D DIM #### [facility] [address] [place] [address] Dr. Andrey Dorman Clarity (U) CLEAR Normal CLEAR [facility] Comment on above: Performed By: #### D DIM #### [facility] [address] [place] [address] Dr. Andrey Dorman Color (U) LT. YELLOW Normal YELLOW [facility] Comment on above: Performed By: #### D DIM #### [facility] [address] [place] [address] Dr. Andrey PIZARRO A micrscopic examination will be performed if indicated. Normal [facility] Comment on above: Performed By: #### D DIM #### [facility] [address] [place] [address] Dr. Andrey Dorman Glucose Ql (U) Negative Normal NEGATIVE [facility] Comment on above: Performed By: #### D DIM #### [facility] [address] [place] [address] Dr. Andrey Dorman Hemoglobin Ql (U) Negative Normal NEGATIVE [facility] Comment on above: Performed By: #### D DIM #### [facility] [address] [place] [address] Dr. Andrey Dorman Ketones Ql (U) 15 mg/dl Abnormal NEGATIVE [facility] Comment on above: Performed By: #### D DIM #### [facility] [address] [place] [address] Dr. Andrey Dorman LEUKOCYTES SMALL Abnormal NEGATIVE [facility] Comment on above: Performed By: #### D DIM #### [facility] [address] [place] [address] Dr. Andrey Dorman Nitrite Ql (U) Negative Normal NEGATIVE [facility] Comment on above: Performed By: #### D DIM #### [facility] [address] [place] [address] Dr. Andrey Dorman pH (U) 6.0 [pH] Normal 5-9 [facility] Comment on above: Performed By: #### D DIM #### [facility] [address] [place] [address] Dr. Andrey Dorman Protein (U) [Mass/Vol] 30 mg/dL Abnormal NEGATIVE/ TRACE [facility] Comment on above: Performed By: #### D DIM #### [facility] [address] [place] [address] Dr. Andrey Dorman SPEC GRAVITY 1.010 Normal 1.005-<=1.025 [facility] [place] [facility] Comment on above: Performed By: #### D DIM #### [facility] [address] [place] [address] Dr. Andrey Dorman UR MICRO IND INDICATED Normal [facility] Comment on above: Performed By: #### D DIM #### [facility] [address] [place] [address] Dr. Andrey Dorman Urobilinogen Qn (U) 0.2 {Naresh'U}/dL Normal 0.2 - 1.0 [facility] Comment on above: Performed By: #### D DIM #### [facility] [address] [place] [address] Dr. Andrey Dorman LACTATE/LACTIC ACIDon 2022 Lactate [Moles/Vol] 0.9 mmol/L Normal 0.4-2.0 [facility] Comment on above: Performed By: #### C MP, LIPA #### [facility] [address] [place] [address] Dr. Andrey Dorman LIPASEon 05-14-2022 Lipase [Catalytic activity/Vol] 127.0 U/L Normal 73.0-393.0 [facility] Comment on above: Performed By: #### C MP, LIPA #### [facility] [address] [place] [address] Dr. Andrey Dorman Lipase [Catalytic activity/Vol] 202.0 U/L Normal 73.0-393.0 [facility] Comment on above: Performed By: #### C MADM, LIPA, WILLIAMS, CMP #### [facility] [address] [place] [address] Dr. Andrey Dorman POTASSIUMon 05-14-2022 Potassium [Moles/Vol] 3.8 mmol/L Normal 3.5-5.1 [facility] Comment on above: Performed By: #### K #### [facility] [address] [place] [address] Dr. Andrey Dorman PROF 14(COMP METB)on 023 Albumin [Mass/Vol] 3.1 g/dL Critically low 3.4-5.0 [facility] Comment on above: Performed By: #### C MP, LIPA #### [facility] [address] [place] [address] Dr. Andrey Dorman Albumin/Globulin [Mass ratio] 0.8 {ratio} Normal [facility] Comment on above: Performed By: #### C MP, LIPA #### [facility] [address] [place] [address] Dr. Andrey Dorman ALP [Catalytic activity/Vol] 51 U/L Normal 46-116 [facility] Comment on above: Performed By: #### C MP, LIPA #### [facility] [address] [place] [address] Dr. Andrey Dorman ALT [Catalytic activity/Vol] 18 U/L Normal 14-59 [facility] Comment on above: Performed By: #### C MP, LIPA #### [facility] [address] [place] [address] Dr. Andrey Dorman Anion gap [Moles/Vol] 16.6 mmol/L Normal [facility] Comment on above: Performed By: #### C MP, LIPA #### [facility] [address] [place] [address] Dr. Andrey Dorman AST [Catalytic activity/Vol] 22 U/L Normal 15-37 [facility] Comment on above: Performed By: #### C MP, LIPA #### [facility] [address] [place] [address] Dr. Andrey Dorman Bilirubin [Mass/Vol] 0.4 mg/dL Normal 0.2-1.0 [facility] Comment on above: Performed By: #### C MP, LIPA #### [facility] [address] [place] [address] Dr. Andrey Dorman Calcium [Mass/Vol] 7.9 mg/dL Critically low 8.5-10.1 [facility] Comment on above: Performed By: #### C MP, LIPA #### [facility] [address] [place] [address] Dr. Andrey Dorman Chloride [Moles/Vol] 107 mmol/L Normal 98-107 [facility] Comment on above: Performed By: #### C MP, LIPA #### [facility] [address] [place] [address] Dr. Andrey Dorman CO2 [Moles/Vol] 16.3 mmol/L Critically low 21.0-32.0 [facility] Comment on above: Performed By: #### C MP, LIPA #### [facility] [address] [place] [address] Dr. Andrey Dorman Creatinine [Mass/Vol] 2.13 mg/dL Critically high 0.55-1.02 [facility] Comment on above: Performed By: #### C MP, LIPA #### [facility] [address] [place] [address] Dr. Andrey Dorman EGFR-AF HONDURAN 27 mL/min/1.73m2 Critically low >=60 [facility] Comment on above: Performed By: #### C MP, LIPA #### [facility] [address] [place] [address] Dr. Andrey Dorman EGFR-NON AF HONDURAN 23 mL/min/1.73m2 Critically low >=60 [facility] Comment on above: Performed By: #### C MP, LIPA #### [facility] [address] [place] [address] Dr. Andrey Dorman Globulin (S) [Mass/Vol] 3.7 g/dL Normal [facility] Comment on above: Performed By: #### C MP, LIPA #### [facility] [address] [place] [address] Dr. Andrey Dorman Glucose [Mass/Vol] 67 mg/dL Critically low 74-106 [facility] Comment on above: Performed By: #### C MP, LIPA #### [facility] [address] [place] [address] Dr. Andrey Dorman Potassium [Moles/Vol] 2.9 mmol/L Critically low 3.5-5.1 [facility] Comment on above: Performed By: #### C MP, LIPA #### [facility] [address] [address] [address] Andrey Dorman Protein [Mass/Vol] 6.8 g/dL Normal 6.4-8.2 [facility] Comment on above: Performed By: #### C MP, LIPA #### [facility] [address] [place] [address] Dr. Andrey Dorman Sodium [Moles/Vol] 139 mmol/L Normal 136-145 [facility] Comment on above: Performed By: #### C MP, LIPA #### [facility] [address] [place] [address] Dr. Andrey Dorman Urea nitrogen [Mass/Vol] 29.0 mg/dL Critically high 7.0-18.0 [facility] Comment on above: Performed By: #### C MP, LIPA #### [facility] [address] [place] [address] Dr. Andrey Dorman Urea nitrogen/Creatinin e [Mass ratio] 13.6 mg/mg Normal [facility] Comment on above: Performed By: #### C MP, LIPA #### [facility] [address] [place] [address] Dr. Andrey Dorman Albumin [Mass/Vol] 3.5 g/dL Normal 3.4-5.0 [facility] Comment on above: Performed By: #### C MADM, LIPA, WILLIAMS, CMP #### [facility] [address] [place] [address] Dr. Andrey Dorman Albumin/Globulin [Mass ratio] 0.9 {ratio} Normal [facility] Comment on above: Performed By: #### C MADM, LIPA, WILLIAMS, CMP #### [facility] [address] [place] [address] Dr. Andrey Dorman ALP [Catalytic activity/Vol] 62 U/L Normal 46-116 [facility] Comment on above: Performed By: #### C MADM, LIPA, WILLIAMS, CMP #### [facility] [address] [place] [address] Dr. Andrey Dorman ALT [Catalytic activity/Vol] 17 U/L Normal 14-59 [facility] Comment on above: Performed By: #### C MADM, LIPA, WILLIAMS, CMP #### [facility] [address] [address] [address] Andrey Dorman Anion gap [Moles/Vol] 18.3 mmol/L Normal [facility] Comment on above: Performed By: #### C MADM, LIPA, WILLIAMS, CMP #### [facility] [address] [place] [address] Dr. Andrey Dorman AST [Catalytic activity/Vol] 21 U/L Normal 15-37 [facility] Comment on above: Performed By: #### C MADM, LIPA, WILLIAMS, CMP #### [facility] [address] [place] [address] Dr. Andrey Dorman Bilirubin [Mass/Vol] 0.5 mg/dL Normal 0.2-1.0 [facility] Comment on above: Performed By: #### C MADM, LIPA, WILLIAMS, CMP #### [facility] [address] [place] [address] Dr. Andrey Dorman Calcium [Mass/Vol] 8.7 mg/dL Normal 8.5-10.1 [facility] Comment on above: Performed By: #### C MADM, LIPA, WILLIAMS, CMP #### [facility] [address] [place] [address] Dr. Andrey Dorman Chloride [Moles/Vol] 106 mmol/L Normal 98-107 [facility] Comment on above: Performed By: #### C MADM, LIPA, WILLIAMS, CMP #### [facility] [address] [place] [address] Dr. Andrey Dorman CO2 [Moles/Vol] 18.9 mmol/L Critically low 21.0-32.0 [facility] Comment on above: Performed By: #### C MADM, LIPA, WILLIAMS, CMP #### [facility] [address] [place] [address] Dr. Andrey Dorman Creatinine [Mass/Vol] 2.55 mg/dL Critically high 0.55-1.02 [facility] Comment on above: Performed By: #### C MADM, LIPA, WILLIAMS, CMP #### [facility] [address] [address] [address] Andrey Dorman EGFR-AF HONDURAN 22 mL/min/1.73m2 Critically low >=60 [facility] Comment on above: Performed By: #### C MADM, LIPA, WILLIAMS, CMP #### [facility] [address] [address] [address] Andrey Dorman EGFR-NON AF HONDURAN 18 mL/min/1.73m2 Critically low >=60 [facility] Comment on above: Performed By: #### C MADM, LIPA, WILLIAMS, CMP #### [facility] [address] [address] [address] Andrey Dorman Globulin (S) [Mass/Vol] 3.7 g/dL Normal [facility] Comment on above: Performed By: #### C MADM, LIPA, WILLIAMS, CMP #### [facility] [address] [place] [address] Dr. Andrey Dorman Glucose [Mass/Vol] 86 mg/dL Normal 74-106 [facility] Comment on above: Performed By: #### C MADM, LIPA, WILLIAMS, CMP #### [facility] [address] [place] [address] Dr. Andrey Dorman Potassium [Moles/Vol] 3.2 mmol/L Critically low 3.5-5.1 [facility] Comment on above: Performed By: #### C MADM, LIPA, WILLIAMS, CMP #### [facility] [address] [address] [address] Andrey Dorman Protein [Mass/Vol] 7.2 g/dL Normal 6.4-8.2 [facility] Comment on above: Performed By: #### C MADM, LIPA, WILLIAMS, CMP #### [facility] [address] [place] [address] Dr. Andrey Dorman Sodium [Moles/Vol] 140 mmol/L Normal 136-145 [facility] Comment on above: Performed By: #### C MADM, LIPA, WILLIAMS, CMP #### [facility] [address] [place], [place] [id number] Dr. Andrey Dorman Urea nitrogen [Mass/Vol] 34.0 mg/dL Critically high 7.0-18.0 [facility] Comment on above: Performed By: #### C JOE MUÑOZ AMY, CMP #### [facility] [address] [place] [address] Dr. Andrey Dorman Urea nitrogen/Creatinin e [Mass ratio] 13.3 mg/mg Normal [facility] Comment on above: Performed By: #### C JOE MUÑOZ AMY, CMP #### [facility] [address] [place] [address] Dr. Andrey Dorman URINE MICROSCOPIC ONLYon BACTERIA TRACE Abnormal NONE SEEN [facility] Comment on above: Performed By: #### D DIM #### [facility] [address] [place] [address] Dr. Andrey Dorman Bacteria identified Cx Nom (U) INDICATED Normal [facility] Comment on above: Performed By: #### D DIM #### [facility] [address] [place] [address] Dr. Andrey Dorman CAST NONE SEEN Normal NONE SEEN [facility] Comment on above: Performed By: #### D DIM #### [facility] [address] [place] [address] Dr. Andrey Dorman Crystals LM Nom (Urine sed) NONE SEEN Normal NONE SEEN [facility] Comment on above: Performed By: #### D DIM #### [facility] [address] [place] [address] Dr. Andrey Dorman Epithelial cells LM Ql (Urine sed) FEW Abnormal NONE SEEN /RARE [facility] Comment on above: Performed By: #### D DIM #### [facility] [address] [place] [address] Dr. Andrey Dorman MUCOUS NONE SEEN Normal NONE SEEN [facility] Comment on above: Performed By: #### D DIM #### [facility] [address] [place] [address] Dr. Andrey Dorman RBC 0-2 Normal 0-2 [facility] Comment on above: Performed By: #### D DIM #### [facility] [address] [place], [place] [address] Dr. Andrey Dorman WBC 10-20 Abnormal NONE SEEN [facility] Comment on above: Performed By: #### D DIM #### [facility] [address] [place], [place] [address] Dr. Andrey Dorman XR ABD FLAT UP_PA [...] RONIT MORALES Date: 2022-05-14 00:23 Normal [facility] XR SHOULDER RT INJon 023 XR [...] by: FLY EARL Date: 2022-02-27 14:45 Normal [facility] PROGRESSon 06-03-2017 [facility] NOTES [facility] PROGRESSon 12-09-2016 [facility] NOTES Normal [facility] Encounters Encounter Date Encounter Type Care Provider Facility Start: 11-18-2022 End: 11-18-2022 ambulatory Moreno Canales Other [employer] Other Start: 11-18-2022 Office outpatient vi sit 15 minutes Moreno Canales [facility] Start: 11-05-2022 End: 11-05-2022 ambulatory Marcela Rocha Facility:[facility] Start: 11-05-2022 End: 11-05-2022 ambulatory MD Marcela Rocha Work Phone: [facility] Work Phone: Start: 11-05-2022 End: 11-05-2022 Discharged Recurring MD Marcela Rocha Work Phone: [facility] [place] Start: 10-14-2022 Office outpatient ne w 30 minutes Moreno Canales [facility] Start: 10-14-2022 End: 10-14-2022 ambulatory MD Marcela Rocha Work Phone: [facility] Work Phone: Start: 10-14-2022 End: 10-14-2022 Patient encounter procedure MD Marcela Rocha Work Phone: [facility] Start: 07-09-[address] MARCELA ROCHA . Facili ty:[facility] Start: 07-03-2022 End: 07-04-[address] MARCELA ROCHA . Facility:[facility] Start: 06-27-2022 End: 06-28-[address] MARCELA ROCHA . Facility:[facility] Start: 06-23-[address] MARCELA ROCHA . Facili ty:[facility] Start: 06-02-2022 End: 06-03-[address] MARCELA ROHCA . Facility:[facility] Start: 05-14-2022 End: 05-15-[address] MARCELA ROCHA . Facility:[facility] Start: 02-27-2022 End: 02-27-[address] MARCELA ROCHA . Facility:[facility] Start: 02-20-2022 End: 02-21-[address] MARCELA ROCHA . Facility:[facility] Start: 12-26-2020 End: 12-26-2020 ambulatory Jordi Lindsay Other [employer] Other Start: 12-26-2020 Office outpatient vi sit 15 minutes Jordi Lindsay [facility] [place] Start: 06-03-2017 Ambulatory PRUDENCIO GHAZOUL [facility] Start: 12-09-2016 Ambulatory PRUDENCIO GHAZOUL [facility] Payers Date Payer Category Payer Self-pay [id number] 1958 Medicare [id number] 1958 Medicare [id number] 1945 Unknown [id number] 2.16.84 [id number] 1945 Unknown [id number] 2..84 [id number] 1945 Unknown [id number] 2..84 [id number] 1945 Unknown [id number] .16.84 [id number] 1945 Unknown [id number] 2.16.84 [id number] 1945 Unknown [id number] 2.16.84 [id number] 1945 Unknown [id number] 2.16.84 [id number] 1945 Unknown [id number] 2.16.84 [id number] Medicare [id number] 2.16.8 [id number] Medicare Medicare [id number] Medicare Medicare Outpatient [id number] Unknown [place] BC/[place] [id number] Unknown [id number] 2.16.8 [id number] Social History Date Type Detail Facility Unknown if ever smoked [employer] Other Start: 11-27-1966 End: 11-23-1974 Sex Assigned At [employer] Other Start: 11-16-2020 End: 11-16-2020 Tobacco smoking status CAIS Ex-smoker (finding) [facility] Start: 1945 Sex Assigned At Female [facility] Evaluation note 11-18-2022 Note Date & Type [...] to pain management for further treatment options [employer] Other Evaluation note 10-14-2022 Note Date & [...] improved, then we can consider an injection. [employer] Other Clinical Note 06-27-2022 Note Date & [...] authenticated by: FLY EARL Date: 2022-06-27 12:58 [facility] Clinical Note 06-02-2022 Note Date [...] authenticated by: FLY EARL Date: 2022-06-02 10:01 [facility] Clinical Note 02-20-2022 Note Date [...] by: FLY EARL Date: 2022-02-20 17:14 [facility] Evaluation note 12-26-2020 Note Date & [...] angiopathy and I would follow her conservatively. [facility] [employer] Other Evaluation note Note Date & Type Note Facility Evaluation note No assessment information availa [facility] Work Phone: History general Narrative - Reported Note Date & Type Note Facility History general Narrative - Reported Type Medical History Hypothyroidism Medical History Hypertension Medical History stroke [facility] [employer] Other Summary Purpose Family History No Family [...] section and content) DATE CREATED AUTHOR 07/30/2017 [facility] DATE CREATED AUTHOR AUTHOR'S ORGANIZ ATION [facility] DATE CREATED AUTHOR AUTHOR'S ORGANIZ ATION 03/20/2023 [facility] REASON FOR VISIT (unrecogniz ed section [...] BE BASED ON THE PRIMARY CLINICAL RECORDS. [facility] [employer] [facility]. provides no warranty or guarantee of the accuracy or completeness of information in this document.
[2023-12-04 12:04] LABS: Thyroid Stimulating Hormone 0.658 uIU/mL (0.358-3.740)
[2023-12-04 12:15] LABS: Free T4 0.73 ng/dL (0.76-1.46)
== END 2023-12-04 11:21 | disposition home or self-care (01) ==
LOC: LAB 11:20
PROVIDERS: PCP Family Medicine; Visit Provider Family Medicine
DX: E03.9 Hypothyroidism, unspecified (principal)
CPT/HCPCS: 36415; 84439; 84443

== ENCOUNTER 2024-08-29 10:19 | Outpatient (OUT) | payer MEDICARE, SELFPAY ==
[2024-08-29 11:59] LABS: Thyroid Stimulating Hormone 0.833 uIU/mL (0.358-3.740)
== END 2024-08-29 10:20 | disposition home or self-care (01) ==
LOC: LAB 10:20
PROVIDERS: PCP Family Medicine; Visit Provider Family Medicine
DX: E03.9 Hypothyroidism, unspecified (principal)
CPT/HCPCS: 36415; 84439; 84443